=== PATIENT | female | born 1960 | race Caucasian/White ===

== ENCOUNTER 2023-01-09 09:52 | Emergency (ER) | payer MEDICARE, SELFPAY ==
[2023-01-09 10:06] VITALS: BP 145/113; PULSE 102; RESP 16; TEMP 36.8; O2SAT 99; BMI 27.3
--- NOTE | 2023-01-09 10:17 | CTR_ITS ---
PROCEDURE INFORMATION: Exam: CT Cervical Spine Without Contrast Exam date and time: 01/09/2023 10:57 AM Age: 62 years old Clinical indication: Injury or trauma; Fall; Blunt trauma TECHNIQUE: Imaging protocol: Computed tomography of the cervical spine without contrast. Radiation optimization: All CT scans at this facility use at least one of these dose optimization techniques: automated exposure control; mA and/or kV adjustment per patient size (includes targeted exams where dose is matched to clinical indication); or iterative reconstruction. REPORTING DATA: Count of CT and Cardiac NM exams in prior 12 months: This patient has received 2 known CTs and 0 known cardiac nuclear medicine studies in the 12 months prior to the current study. COMPARISON: No relevant prior studies available. RADIATION DOSE METRICS: Total DLP (mGy-cm): 158.9 FINDINGS: Bones/joints: Transverse ligament calcification. No fracture. No malalignment. No destructive bony process identified. 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 Moderate atlantodental osteoarthritis. Moderate right C3-C4 neural foraminal narrowing. Moderate left C4-C5, C5-C6 and C6-C7 primary facet osteoarthritis. Mild left C3-C4 and C7-T1 primary facet osteoarthritis. Moderate left C4-C5 neural foraminal narrowing. Moderate bilateral C5-C6 neural foraminal narrowing. Moderate left C6-C7 neural foraminal narrowing. Moderate right C3-C4 primary facet osteoarthritis. Mild right C4-C5, C5-C6, C6-C7 primary facet osteoarthritis. Posterior ligamentum flavum hypertrophy at multiple levels. Lungs: Minimal right apical paraseptal pulmonary emphysema. Thyroid: Small bilateral thyroid lobes, with right lobe small calcification (status post ablative therapy?). Vasculature: Bilateral carotid atherosclerotic calcifications. Soft tissues: Unremarkable. CT/CT cervical spin wo con* [id number] IMPRESSION: 1. Degenerative changes as above. 2. No acute cervical spinal bony injury identified.
--- NOTE | 2023-01-09 10:17 | CTR_ITS ---
PROCEDURE INFORMATION: Exam: CT Lumbar Spine Without Contrast Exam date and time: 01/09/2023 11:05 AM Age: 62 years old Clinical indication: Injury or trauma; Fall; Blunt trauma (contusions or hematomas); Prior surgery; Surgery date: 1-6 months; Surgery type: T9-s1 fusion TECHNIQUE: Imaging protocol: Computed tomography of the lumbar spine without contrast. Radiation optimization: All CT scans at this facility use at least one of these dose optimization techniques: automated exposure control; mA and/or kV adjustment per patient size (includes targeted exams where dose is matched to clinical indication); or iterative reconstruction. REPORTING DATA: Count of CT and Cardiac NM exams in prior 12 months: This patient has received 2 known CTs and 0 known cardiac nuclear medicine studies in the 12 months prior to the current study. COMPARISON: No relevant prior studies available. RADIATION DOSE METRICS: Total DLP (mGy-cm): 663.74 FINDINGS: Bones/joints: Postsurgical changes of posterior krystal and pedicle screw fixation extending from T10 through S1 with laminectomies at L4 and L5 and bone graft material in place. Age-indeterminate fracture involving the anterior superior aspect of the T10 vertebral body without significant height loss or bony retropulsion. Age-indeterminate nondisplaced fracture of the right transverse process of T10. There is lucency about the right L3 screw and involving the superior endplate of the L3 vertebral body. No evidence of high-grade spinal canal or neural foraminal stenosis. Soft tissues: Unremarkable. CT/CT lumbar spine wo con* [id number] IMPRESSION: 1. Age-indeterminate fracture involving the anterior superior aspect of the T10 vertebral body without significant height loss or bony retropulsion. 2. Age-indeterminate nondisplaced fracture of the right transverse process of T10. 3. There is lucency about the right L3 screw and involving the superior endplate of the L3 vertebral body. Correlation with any prior imaging would be of benefit. Loosening or infection are not entirely excluded.
--- NOTE | 2023-01-09 10:18 | CTR_ITS ---
PROCEDURE INFORMATION: Exam: CT Head Without Contrast Exam date and time: 01/09/2023 10:57 AM Age: 62 years old Clinical indication: Injury or trauma; Fall; Blunt trauma (contusions or hematomas); Additional info: Fall trauma TECHNIQUE: Imaging protocol: Computed tomography of the head without contrast. Radiation optimization: All CT scans at this facility use at least one of these dose optimization techniques: automated exposure control; mA and/or kV adjustment per patient size (includes targeted exams where dose is matched to clinical indication); or iterative reconstruction. REPORTING DATA: Count of CT and Cardiac NM exams in prior 12 months: This patient has received [address] and 0 known cardiac nuclear medicine studies in the 12 months prior to the current study. COMPARISON: No relevant prior studies available. RADIATION DOSE METRICS: Total DLP (mGy-cm): 1192.83 FINDINGS: Brain: Chronic lacunar infarction right basal forebrain. Mild hypoattenuating foci are noted in the anterior lateral ventricular periventricular white matter bilaterally. No intracranial hemorrhage. No mass or acute cortical infarction identified. Ventricles: Prominence of the ventricular system and subarachnoid spaces is consistent with the patient's age of 62 years. Paranasal sinuses: Mild posterior mucosal thickening and/or mucous right maxillary sinus.. Mastoid air cells: Visualized mastoid air cells are well aerated. Bones/joints: No acute abnormality. No acute fracture. Soft tissues: Unremarkable. Vasculature: Atherosclerotic calcifications are present involving the carotid artery siphons bilaterally and the right vertebral artery. CT/CT head wo con* [id number] IMPRESSION: 1. Chronic lacunar infarction right basal forebrain. 2. Age appropriate supratentorial and infratentorial atrophy. 3. Mild chronic white matter microvascular ischemic disease. 4. No acute intracranial injury identified.
--- NOTE | 2023-01-09 10:20 | ED_ITS ---
HPI - Back Pain/Injury General: Chief Complaint: Back Pain/Injury Stated Complaint: post spinal surgery pain/falls Time Seen by Provider: 01/09/23 09:55 Source: patient Mode of arrival: ambulatory History of Present Illness: 62-year-old female who presents to the emergency room complaining of multiple falls. She had a lumbar fusion in April of last year while in [place]. Evidently she moved here to be with family she does not use any kind of assistive device for walking neither cane or walker. She says she does not have enough upper strength to keep from falling. MD elicited complaint: back pain Pertinent past history: prior back pain and back surgery Onset (ago): week(s) (6) Severity: moderate Similar Symptoms Previously: Yes Exacerbating factors: none Relieving factors: none Associated symptoms: Deny abdominal pain, arthralgias, chills, change in bowel habits, difficulty walking, dysuria, fatigue, fecal incontinence, fever(s), hematuria, myalgias, nausea, numbness, syncope, tingling/numbness/burning, urinary frequency, urinary urgency, vomiting or weakness Review of Systems Const: Denies: fever(s), chills or fatigue ENMT: Denies: throat pain, ear or mastoid pain, nasal discharge or nasal congestion Card: Denies: chest pain or syncope Resp: Denies: dyspnea, productive cough or non-productive cough GI: Denies: abdominal pain, nausea, vomiting, fecal incontinence or change in bowel habits : Denies: dysuria, urinary frequency, urinary urgency or hematuria Musc: Reports: neck pain and back pain Skin/Breast: Denies: rash or pruritus Neuro: Denies: difficulty walking PFS ED PFSH: Medical History (Updated 01/09/23 @ 12:46 by oPla Montes De Oca DO) Chronic back pain Surgical History (Updated 01/09/23 @ 12:46 by Pola Montes De Oca DO) History of lumbar fusion Physical Exam Const: GENERAL APPEARANCE: cooperative and comfortable ORIENTATION/CONSCIOUSNESS: Yes awake, Yes oriented to person, Yes oriented to place and Yes oriented to time HENMT: COMMON NORMALS: normocephalic, atraumatic and hearing grossly normal bilaterally HEAD & SCALP: normocephalic and atraumatic Neck/C-Spine: OTHER: Scar from previous surgery Resp: COMMON NORMALS: normal respiratory effort, No retractions, No use of accessory muscles and clear to auscultation bilaterally AUSCULTATION: clear to auscultation bilaterally Cardio: COMMON NORMALS: regular rate, regular rhythm and No murmurs present (Cardio) RATE: regular rate RHYTHM: regular rhythm GI: COMMON NORMALS: Soft to palpation and No hepatosplenomegaly present AUSCULTATION: Yes normoactive bowel sounds PALPATION: Yes Soft to palpation, No Tenderness to palpation present (GI), No Guarding due to palpation present (GI) and Yes No hepatosplenomegaly present Extremity: COMMON NORMALS: normal to inspection, capillary refill normal, no clubbing, cyanosis or edema, no calf tenderness and no pedal edema OTHER: Dorsum plantarflexion 5 of 5 Neuro: SENSORIUM/ORIENTATION: Yes oriented to person, Yes oriented to place and Yes oriented to time Skin: COMMON NORMALS: no rashes or lesions noted GENERAL SKIN EXAM: no rashes or lesions noted Course Vital Signs: Vital signs: Vital Signs Temperature 98.3 F 01/09/23 10:06 Pulse Rate 91 01/09/23 12:55 Respiratory Rate 16 01/09/23 10:06 Blood Pressure 133/93 01/09/23 12:55 Pulse Oximetry 98 01/09/23 12:55 Oxygen Delivery Me thod 01/09/23 10:06 MDM - Back Pain/Injury Medical Decision Making Labs and imaging reviewed. CT shows T10 compression fracture and L3 spinous process fracture both of which are age-indeterminate. Additionally there is loosening of the screws at the L3 hardware from her laminectomy and fusion. We do not have comparison views to be certain. She does not have any signs of infection at this point her white count is normal. We will discharge patient home restarted Lyrica steroid pack given muscle relaxer given diclofenac as well. Follow-up with orthopedic spine surgery return for has further problems. Medical Records I reviewed the patient's medical records. Labs I reviewed the patient's lab results. 01/09/23 10:43 01/09/23 10:43 Radiology Impressions Cervical Spine CT 01/09/23 10:17 IMPRESSION: 1. Degenerative changes as above. 2. No acute cervical spinal bony injury identified. Lumbar Spine CT 01/09/23 10:17 IMPRESSION: 1. Age-indeterminate fracture involving the anterior superior aspect of the T10 vertebral body without significant height loss or bony retropulsion. 2. Age-indeterminate nondisplaced fracture of the right transverse process of T10. 3. There is lucency about the right L3 screw and involving the superior endplate of the L3 vertebral body. Correlation with any prior imaging would be of benefit. Loosening or infection are not entirely excluded. Head CT 01/09/23 10:18 IMPRESSION: 1. Chronic lacunar infarction right basal forebrain. 2. Age appropriate supratentorial and infratentorial atrophy. 3. Mild chronic white matter microvascular ischemic disease. 4. No acute intracranial injury identified. Laboratory Results WBC 6.6 10^3/uL (4.0-10.0) 01/09/23 10:43 RBC 5.00 10^6/uL (4.1-5.3) 01/09/23 10:43 Hgb 15.3 g/dL (11.5-15.3) 01/09/23 10:43 Hct 48.0 % (37.0-47.0) H 01/09/23 10:43 MCV 96.0 fl (81-99) 01/09/23 10:43 MCH 30.6 pg (28.0-34.0) 01/09/23 10:43 MCHC 31.9 g/dL (30.0-36.0) 01/09/23 10:43 RDW 12.4 % (12.1-15.1) 01/09/23 10:43 Plt Count 317 10^3/cmm (130-400) 01/09/23 10:43 MPV 7.9 fL (7.4-10.4) 01/09/23 10:43 Neut % (Auto) 60.4 % 01/09/23 10:43 Lymph % (Auto) 24.8 % 01/09/23 10:43 Lasalle % (Auto) 7.4 % 01/09/23 10:43 Eos % (Auto) 6.1 % 01/09/23 10:43 Baso % (Auto) 1.1 % 01/09/23 10:43 Neut # (Auto) 3.99 10^3/uL (1.8-7.7) 01/09/23 10:43 Lymph # (Auto) 1.6 10^3/uL (0.8-4.8) 01/09/23 10:43 Lasalle # (Auto) 0.5 10^3/uL (0.2-0.9) 01/09/23 10:43 Eos # (Auto) 0.4 10^3/uL (0.0-0.8) 01/09/23 10:43 Baso # (Auto) 0.1 10^3/uL (0.0-0.1) 01/09/23 10:43 Nucleated RBC % (auto) 0 % 01/09/23 10:43 Nucleated RBCs # 0.0 /100WBC 01/09/23 10:43 Sodium 136 mmol/L (136-145) 01/09/23 10:43 Potassium 4.3 mmol/L (3.5-5.1) 01/09/23 10:43 Chloride 98 mmol/L (98-107) 01/09/23 10:43 Carbon Dioxide 29 mmol/L (22-29) 01/09/23 10:43 Anion Gap 13.3 (5-19) 01/09/23 10:43 BUN 11 mg/dL (8-23) 01/09/23 10:43 Creatinine 0.6 mg/dL (0.5-0.9) 01/09/23 10:43 GFR Calculation 101.6 mL/min (90-130) 01/09/23 10:43 Glucose 81 mg/dL (65-115) 01/09/23 10:43 Calculated Osmolality 280 mOsm/kg (285-295) L 01/09/23 10:43 Calcium 9.5 mg/dL (8.5-10.5) 01/09/23 10:43 Total Bilirubin 0.3 mg/dL (0.15-1.2) 01/09/23 10:43 AST 22 U/L (0-32) 01/09/23 10:43 ALT 10 U/L (0-33) 01/09/23 10:43 Alkaline Phosphatase 105 U/L (35-105) 01/09/23 10:43 Total Protein 8.3 g/dL (6.6-8.7) 01/09/23 10:43 Albumin 4.8 g/dL (3.5-5.2) 01/09/23 10:43 Globulin 3.5 g/dL (1.3-4.6) 01/09/23 10:43 Discharge Plan Discharge Patient Disposition: Home Clinical Impression: Chronic back pain, History of lumbar fusion, Fracture of transverse process of lumbar vertebra, Compression fracture of thoracic vertebra, Loosening of orthopedic screw Condition: Stable Prescriptions: New Lyrica 200 mg capsule 200 mg PO BID Qty: 30 0RF tizanidine 4 mg tablet 4 mg PO Q6H PRN (Reason: muscle spasticity) Qty: 20 0RF Rx Instructions: do not exceed 3 doses per 24 hrs No Action cyclobenzaprine 10 mg Tablet 10 mg PO TID PRN (Reason: Muscle Spasm) levothyroxine 75 mcg Tablet 75 mcg PO DAILY pantoprazole 40 mg Tablet,Delayed Release (Dr/Ec) 40 mg PO DAILY Celebrex 100 mg Capsule 100 mg PO BID PRN (Reason: Pain) Cymbalta 20 mg Capsule,Delayed Release(Dr/Ec) 20 mg PO BID Lyrica 100 mg Capsule 200 mg PO BID oxycodone 10 mg Tablet 10 mg PO QID PRN (Reason: Pain) Keppra XR 750 mg Tablet Extended Release 24 Hr 750 mg PO BEDTIME Discharge Orders: Discharge ED (Routine); Ordered 01/09/23 Ordered By: Pola Montes De Oca Discharge Diet: Usual diet Discharge Activity: Increase activity as tolerated Patient Instructions: Opioid Safety, Pain Management Activity Restrictions/Additional Instructions: You were seen today for chronic back pain. CT showed a lumbar transverse process fracture and a thoracic compression fracture however we cannot see how long ago these may have happened. There is also loosening of the screw in the third lumbar vertebrae. This is difficult to assess because we do not have available images to compare to. You are given medications for pain to use by mouth at home. Case management make arrangements for you to follow-up with o rthopedic spine surgery so they can address these issues. Coding Level of Care Code ED Instrument Setter for Aolnzo Mendiola
[2023-01-09] MEDS: ketorolac 30 mg/mL INJ IVP (10:39)
[2023-01-09] MEDS: dexamethasone 10 mg/mL INJ IVP (10:41)
[2023-01-09] MEDS: orphenadrine 30 mg/mL Inj 2 mL 60 MG IVP (10:43)
[2023-01-09 10:56] LABS: Basophils # 0.1 10^3/uL (0.0-0.1); Basophils % 1.1 %; Eosinophils # 0.4 10^3/uL (0.0-0.8); Eosinophils % 6.1 %; Hemoglobin 15.3 g/dL (11.5-15.3); Lymphocytes # 1.6 10^3/uL (0.8-4.8); Lymphocytes % 24.8 %; Mean Corpuscular HGB Conc 31.9 g/dL (30.0-36.0); Mean Corpuscular Hemoglobin 30.6 pg (28.0-34.0); Mean Platelet Volume 7.9 fL (7.4-10.4); Monocytes # 0.5 10^3/uL (0.2-0.9); Monocytes % 7.4 %; Neutrophils # 3.99 10^3/uL (1.8-7.7); Neutrophils % 60.4 %; Nucleated Red Blood Cells % 0 %; Platelet Count 317 10^3/cmm (130-400); Red Cell Distribution Width 12.4 % (12.1-15.1); White Blood Count 6.6 10^3/uL (4.0-10.0)
[2023-01-09 11:14] LABS: Alanine Aminotransferase 10 U/L (0-33); Albumin Level 4.8 g/dL (3.5-5.2); Alkaline Phosphatase 105 U/L (35-105); Anion Gap 13.3 (5-19); Aspartate Amino Transferase 22 U/L (0-32); Blood Urea Nitrogen 11 mg/dL (8-23); Calcium 9.5 mg/dL (8.5-10.5); Carbon Dioxide 29 mmol/L (22-29); Chloride 98 mmol/L (98-107); Globulin 3.5 g/dL (1.3-4.6); Glomerular Filtration Rate 101.6 mL/min (90-130); Glucose 81 mg/dL (65-115); Osmolality Calculated 280 mOsm/kg (285-295); Potassium 4.3 mmol/L (3.5-5.1); Sodium 136 mmol/L (136-145); Total Bilirubin 0.3 mg/dL (0.15-1.2); Total Protein 8.3 g/dL (6.6-8.7)
[2023-01-09 12:55] VITALS: BP 133/93; PULSE 91; O2SAT 98
--- NOTE | 2023-01-09 15:21 | DCPLANNER ---
Addendum entered by Nola Sherman 01/13/23 09:21: Patient had a follow up appointment scheduled with ortho - patient did attend appointment Addendum entered by Nola Sherman 01/10/23 08:32: Patient has a follow up appointment scheduled for , January 12, 2023 at 8:30 with Erwin at ortho. Clinic will call patient with appointment information. Original Note: environmental services manager had message to schedule a follow up appointment for patient with ortho. environmental services manager sent patients information to the front office staff at ortho. Patients information will be printed and reviewed. Clinic will call patient with appointment information.
--- NOTE | 2023-01-12 13:35 | DCPLANNER ---
Addendum entered by Nola Sherman 01/20/23 09:32: Patient did attend appointment with Dr. Sotelo at [facility] Original Note: manager study called patient due to no primary care physician - patient stated that she would like help in getting established with a provider. manager study called [facility], spoke with Tara gave clinic patients information. A follow up appointment was scheduled for Wednesday, January 18, 2023 at 8:[address] Sotelo. manager study gave patient the appointment information.
== END 2023-01-09 12:56 | disposition home or self-care (01) ==
PROVIDERS: Emergency Provider Family Medicine
DX: G89.29 Other chronic pain (principal); S32.009A Unspecified fracture of unspecified lumbar vertebra, initial encounter for closed fracture; S22.070A Wedge compression fracture of T9-T10 vertebra, initial encounter for closed fracture; T84.89XA Other specified complication of internal orthopedic prosthetic devices, implants and grafts, initial encounter; Y79.8 Miscellaneous orthopedic devices associated with adverse incidents, not elsewhere classified; W19.XXXA Unspecified fall, initial encounter
CPT/HCPCS: 70450; 72125; 72131; 80053; 85025; 96374; 96375; 99285; J1100; J1885; J2360

== ENCOUNTER → 2023-01-12 08:33 | Outpatient (BNVA) | payer MEDICARE, SELFPAY | PROVIDERS: Referring Provider Family Medicine; Visit Provider Physician Assistant | DX: S32.009A Unspecified fracture of unspecified lumbar vertebra, initial encounter for closed fracture (principal); S22.000A Wedge compression fracture of unspecified thoracic vertebra, initial encounter for closed fracture; M54.9 Dorsalgia, unspecified; Z98.1 Arthrodesis status; X58.XXXA Exposure to other specified factors, initial encounter | CPT/HCPCS: 72072; 72100; 99203 ==

== ENCOUNTER 2023-01-12 14:42 | Outpatient (CLI) | payer MEDICARE, SELFPAY | END 2023-01-12 14:43 | disposition home or self-care (01) | LOC: SPT 14:42 | PROVIDERS: Visit Provider Physician Assistant | DX: Z46.89 Encounter for fitting and adjustment of other specified devices (principal); S32.009D Unspecified fracture of unspecified lumbar vertebra, subsequent encounter for fracture with routine healing; S22.000D Wedge compression fracture of unspecified thoracic vertebra, subsequent encounter for fracture with routine healing; G89.29 Other chronic pain; M54.9 Dorsalgia, unspecified; X58.XXXD Exposure to other specified factors, subsequent encounter | CPT/HCPCS: 97760; L0456 ==

== ENCOUNTER 2023-02-02 13:13 | Outpatient (CLI) | payer MEDICARE, MEDICAID, SELFPAY ==
--- NOTE | 2023-02-02 13:00 | MR_ITS ---
WS: [id number] MRI THORACIC SPINE noncontrast. HISTORY: Extreme back pain and instability. COMPARISON: Thoracic spine radiograph 01/12/2023 TECHNIQUE: Multiplanar sequences are performed in sagittal and axial planes. Marked increase in thoracic kyphosis. Prior vertebroplasties at T5 and T6. Posterior fusion hardware begins at T10 into the upper lumbar spine. Very slight anterior wedging of T7. No marrow edema. T1-2: Normal. T2-3: Normal. T3-4: Normal. T4-5: Mild disc bulging. T5-6: Normal. T6-7: Bilateral facet arthritis. Very slight foraminal narrowing. T7-8: Normal. T8-9: Facet joint arthritis and mild foraminal narrowing. T9-10: Seen best on the sagittal imaging is diffuse disc bulging and likely associated disc protrusi ons encroaching upon the thoracic cord. There is mild to moderate central and foraminal stenosis. The re is contact on the LEFT lateral thecal sac by disc disease which is probably a protrusion. Similar findings on the RIGHT. Moderate foraminal stenosis also suspected. T10-11: Mild bilateral foraminal narrowing. T11-12: Left-sided facet joint arthritis. No high-grade stenosis. MR/MR thoracic spin wo con* [id number] IMPRESSION: 1. Diffuse annular disc bulging with bilateral proximal foraminal disc protrus ions suspected at T9-T10 with significant narrowing and encroachment upon the t hecal sac and foramina. Moderate central and foraminal stenosis. 2. Posterior thoracolumbar fusion begins at T10 through the upper lumbar spine . 3. Prior kyphoplasty is at T5 and T6. 4. Very mild anterior wedging of T7.
== END 2023-02-02 13:14 | disposition home or self-care (01) ==
PROVIDERS: PCP Family Medicine Adult Medicine; Visit Provider Physician Assistant
DX: M48.54XA Collapsed vertebra, not elsewhere classified, thoracic region, initial encounter for fracture (principal); X58.XXXA Exposure to other specified factors, initial encounter
CPT/HCPCS: 72146

== ENCOUNTER → 2023-02-14 09:21 | Outpatient (BNVA) | payer MEDICARE, MEDICAID, SELFPAY | PROVIDERS: PCP Family Medicine Adult Medicine; Visit Provider Physician Assistant | DX: M54.2 Cervicalgia (principal) | CPT/HCPCS: 36415; 72050; 80053; 85025; 99213 ==

== ENCOUNTER → 2023-03-01 16:05 | Outpatient (BNVA) | payer OTHER, MEDICAID, SELFPAY | PROVIDERS: PCP Family Medicine Adult Medicine; Referring Provider Physician Assistant; Visit Provider Internal Medicine | DX: M81.0 Age-related osteoporosis without current pathological fracture (principal) | CPT/HCPCS: 80053; 82306; 82310; 83970; 84439; 84443 ==

== ENCOUNTER 2023-03-06 13:08 | Outpatient (CLI) | payer OTHER, MEDICAID, SELFPAY ==
--- NOTE | 2023-03-06 13:30 | XR_ITS ---
WS: [id number] DEXA (DUAL ENERGY X-RAY ABSORPTIOMETRY) Bone mineral density was performed using a [employer] machine. HISTORY: osteoporosis COMPARISON: None available. Lumbar spine BMD (L1-L4): 1.348 g/cm2 T score: 1.4 Z score: 2.7 Total hip BMD: Left: 0.781 g/cm2. T score: -1.8 Z score: -0.8 Right: 0.817 g/cm2. T score: -1.5 Z score: -0.6 10 year probability of a major osteoporotic fracture is 7.8%. XR/XR DEXA axial skeleton* [id number] IMPRESSION: OSTEOPENIA based upon the WHO classification for females.
== END 2023-03-06 13:09 | disposition home or self-care (01) ==
LOC: RAD 13:11
PROVIDERS: PCP Family Medicine Adult Medicine; Visit Provider Internal Medicine
DX: M81.0 Age-related osteoporosis without current pathological fracture (principal)
CPT/HCPCS: 77080

== ENCOUNTER → 2023-03-23 10:31 | Outpatient (BNVA) | payer MEDICARE, MEDICAID, SELFPAY | PROVIDERS: PCP Family Medicine Adult Medicine; Visit Provider Physician Assistant | DX: M54.6 Pain in thoracic spine (principal) | CPT/HCPCS: 72070; 99213 ==

== ENCOUNTER 2023-03-31 11:40 | Outpatient (CLI) | payer MEDICARE, MEDICAID, SELFPAY ==
--- NOTE | 2023-03-31 12:00 | MR_ITS ---
WS: [id number] MRI THORACIC SPINE noncontrast HISTORY: Chronic mid back pain. Recent falls. COMPARISON: 02/02/2023. Radiograph 03/23/2023 TECHNIQUE: Multiplanar sequences are performed in sagittal and axial planes. Marked increase in thoracic kyphosis. Status post thoracolumbar fusion. Posterior fusion hardware beg ins at T10 and extends into the upper lumbar spine. Prior vertebroplasties at T5 and T6. No acute tho racic spine fracture identified. No signal abnormality within the cord. Mild Schmorl's node defect in the anterior wedging of T7 is stable. T8 hemangioma. T9-10: RIGHT paracentral disc protrusion extends above the joint line and does displace the thecal s ac. There is very slight contact with extension into the RIGHT paracentral recess. The extruded porti on of the disc is new since the prior study. There was a LEFT paracentral disc protrusion noted on th e prior MRI. There is still increased soft tissue in the LEFT foramen suggesting residual LEFT forami nal disc protrusion. There is contact and new deformity of the cord secondary to the disc protrusions and facet arthritis. Deformity of the cord is predominantly due to the RIGHT paracentral extruded di sc. T10-11: No stenosis. T11-12: Hardware artifact limiting evaluation. MR/MR thoracic spin wo con* [id number] IMPRESSION: 1. New lateral RIGHT paracentral extruded disc at T9-10 contacting the RIGHT l ateral thecal sac and cord. There is an additional smaller LEFT foraminal disc protrusion that was described on 02/02/2023 in the LEFT T9-10 foramen. There has been a progression of the central stenosis since that prior study. 2. Extensive posterior thoracolumbar hardware beginning at T10 through the upp er lumbar spine. 3. Prior vertebroplasties at T5 and T6.
== END 2023-03-31 11:41 | disposition home or self-care (01) ==
LOC: RAD 11:45
PROVIDERS: PCP Family Medicine Adult Medicine; Visit Provider Physician Assistant
DX: M51.24 Other intervertebral disc displacement, thoracic region (principal); M48.04 Spinal stenosis, thoracic region
CPT/HCPCS: 72146

== ENCOUNTER 2023-04-10 13:26 | Inpatient (IN) | payer MEDICARE, MEDICAID, SELFPAY ==
[2023-04-03 08:17] VITALS: BMI 27.1
--- NOTE | 2023-04-03 14:23 | ANES.PREANE2 ---
Pre-Anesthetic Assessment Height/Weight: Height 1.57 m Weight 67.132 kg Operation Date: 04/10/23 09:10 Proposed Procedures p Hardware Removal Thoracic(Not Applicable) - Jignesh Mcnamara DO s T3- T10 revision fusion with lumbo pelvis and SI joint fusion: [id number],89626,M54.2,M54.6,G89.29(Not Applicable) - Jignesh Mcnamara DO Familial anesthetic complications: none Was Beta Grayson taken within 24 hours: N/A Was Clonidine taken within 24 hours: N/A Social No alcohol and No tobacco (h/o smoking) Exam alert, oriented x 3 and regular rate & rhythm Airway Submandibular: within normal limits Cervical ROM: within normal limits Mallampati: Class II Dentition: chipped Metabolic Thyroid Disease Musc/skel Lower Back Pain and Osteoarthritis/DJD Neuropsych Anxiety, Depression and Seizure Chronic pain Anesthetic Plan ASA status: 3 Anesthesia: General Other: Discussed a.line and need for transfusion. Medications/Allergies Home Medications Medication Instructions Recorded Confirmed Last Taken Type TLSO Brace #1 ea 01/12/23 03/23/23 Unknown Rx Walker #1 ea 01/12/23 03/23/23 Unknown Rx duloxetine 30 mg capsule,delayed 30 mg PO BID #60 caps 01/18/23 04/03/23 04/03/23 Rx release levetiracetam 750 mg 750 mg PO BEDTIME seizures #90 tabs 01/18/23 04/03/23 04/03/23 Rx tablet,extended release 24 hr (Keppra XR) levothyroxine 75 mcg tablet 75 mcg PO DAILY low thyroid #90 01/18/23 04/03/23 04/03/23 Rx tabs pantoprazole 40 mg tablet,delayed 40 mg PO DAILY acid reflux #90 tabs 01/18/23 04/03/23 04/03/23 Rx release pregabalin 100 mg capsule 100 mg PO BID chronic pain #60 caps 01/20/23 04/03/23 04/03/23 Rx promethazine 25 mg tablet 25 mg PO Q6H PRN nausea and 02/16/23 04/03/23 04/03/23 Rx vomiting #30 tabs Bone Growth Stimulator [id number] #1 ea 02/27/23 03/23/23 Unknown Rx Intraoperative neuromonitoring #1 ea 02/27/23 03/23/23 Unknown Rx tizanidine 4 mg capsule 4 mg PO TID PRN pain] 03/09/23 04/03/23 04/03/23 History oxycodone 5 mg capsule 5 mg PO Q6H PRN Pain 04/03/23 04/03/23 04/03/23 History Allergies Allergy/AdvReac Type Severity Reaction Status Date / Time Sulfa (Sulfonamide Allergy ALGY-Anaphy Verified 04/03/23 08:13 Antibiotics) laxis [facility] Anesthesia Medical History (Updated 03/28/23 @ 06:14 by [place] Sotelo MD) Funes esophagus Chronic back pain posterior krystal and pedicle screw fixation extending from T10 through S1 with laminectomies at L4 and L5 Chronic left shoulder pain Chronic nausea Depression GERD (gastroesophageal reflux disease) History of alcoholism Sober since 2009 Hx of hepatitis C treated at time of diagnosis Hypothyroidism Opioid dependence [facility], Oxycodone out since ~ 12/21/2022 Osteoporosis Osteoporotic compression fracture of spine Seizures had one seizure Oct 2021, none since Surgical History History of lumbar fusion S/P spinal fusion S/P vertebroplasty Family History Denies family history of Diabetes Anesthesia complication Hypertension Social History Smoking and tobacco status: former smoker Quit status (tobacco): has quit using tobacco Former quit date comment: quit in 2019 Data Anesthesia Cardiac Studies: No Data to Display
[2023-04-10] VITALS (24 sets, daily range): BP systolic 89–118; BP diastolic 48–100; PULSE 80–111; RESP 15–20; TEMP 36.4–37.4; O2SAT 91–100
--- NOTE | 2023-04-10 | XR_ITS ---
WS: [id number] EXAMINATION: XR lumbar spine 1V [id number] REASON FOR EXAM: T3-T10 revision COMPARISON: 01/12/2023. ORDER DATE: 04/10/2023 12:00 AM FINDINGS/IMPRESSION: Intraoperatively, there is a partial view of the lumbar spine but mostly the exa m is centered at the right SI joint with a right marker noted laterally. There is one other view intr aoperatively with midline centering demonstrating tissue spreaders and screws being positioned throug h each SI joint with the spinal instrumentation from prior fusion visualized more cephalad. The films are not obtained for diagnostic purposes.
[2023-04-10] MEDS: sodium chloride 0.9% 1,000 ML 30 ML IV (09:20)
[2023-04-10] MEDS: HYDROmorphone 1 mg/mL INJ 1 mL 0.5 MG IVP (09:41)
--- NOTE | 2023-04-10 09:43 | P.ANESUD_ITS ---
Pre-Anesthetic Update Pre-Anesthetic Assessment: Date of Surgery/Procedure: 04/10/23 Preop Tammy gnosis: Failed spinal fusion thoracic kyphosis, chronic back pain Proposed Procedure: Operation Date: 04/10/23 10:25 Proposed Procedures p Hardware Removal Thoracic(Not Applicable) - Jignesh Mcnamara, DO s T3- T10 revision fusion with lumbo pelvis and SI joint fusion: [id number],M54.2,M54.6,G89.29(Not Applicable) - Jignesh Mcnamara, DO Any changes to Pre-Anesthetic Assessment?: No Last Intake: Intake Last Liquid Date 04/09/23 Last Liquid Time 20:00 Last Solid Date 04/09/23 Last Solid Time 18:00 Vitals: Temperature 98.5 F 04/10/23 09:06 Temperature Source Temporal Artery S can 04/10/23 09:06 Pulse Rate 80 04/10/23 09:06 Respiratory Rate 18 04/10/23 09:06 Blood Pressure 118/100 04/10/23 09:06 Blood Pressure Elva n 106 04/10/23 09:06 Pulse Oximetry 96 04/10/23 09:06 Oxygen Delivery Me thod Room Air 04/10/23 09:06 Exam: Pre-Anes Outpt Exam: alert, oriented x 3, clear to auscultation bilaterally and regular rate & rhythm Cardiac Studies: No Data to Display
[2023-04-10 09:49] LABS: Basophils % 0.7 %; Eosinophils # 0.5 10^3/uL (0.0-0.8); Eosinophils % 8.7 %; Hematocrit 39.8 % (37.0-47.0); Hemoglobin 12.9 g/dL (11.5-15.3); Lymphocytes # 1.8 10^3/uL (0.8-4.8); Lymphocytes % 32.2 %; Mean Corpuscular HGB Conc 32.4 g/dL (30.0-36.0); Mean Corpuscular Hemoglobin 31.8 pg (28.0-34.0); Mean Platelet Volume 8.7 fL (7.4-10.4); Monocytes # 0.5 10^3/uL (0.2-0.9); Monocytes % 8.7 %; Neutrophils # 2.74 10^3/uL (1.8-7.7); Neutrophils % 49.5 %; Nucleated Red Blood Cells % 0 %; Platelet Count 238 10^3/cmm (130-400); Red Blood Count 4.06 10^6/uL (4.1-5.3); White Blood Count 5.5 10^3/uL (4.0-10.0)
[2023-04-10 10:23] LABS: Add Urine Culture? No; Add Urine Microscopic? YES; Bacteria Urine TRACE /hpf; Bilirubin Urine Neg (Negative); Blood Urine Neg (Negative); Glucose Urine UA Norm (Normal); Ketones Urine Negative (Negative); Leukocyte Esterase Urine 1+ (Negative); Nitrate Urine Negative (Negative); Protein Urine Neg (Negative); RBC Urine 0-4 /hpf (0-2); Renal Epithelial Cells Urine 3 /hpf; Squamous Epithelial Cell Urine 0-4 /hpf (0-5); Urine Appearance Clear (CLEAR); Urine Color Yellow (Yellow); Urobilinogen Urine Norm (Negative); pH Urine 7 (5-7)
--- NOTE | 2023-04-10 10:25 | W.PM.OPSUD ---
Surgery/Procedure H&P Update DATE OF PROCEDURE: April 10, 2023 DATE H&P PERFORMED: 03/23/23 H&P UPDATE INFORMATION: I have reviewed H&P completed within last 30 days, I have examined patient prior to procedure and No changes to prior documentation PREOP DIAGNOSIS: Failed spinal fusion thoracic kyphosis, chronic back pain PLANNED PROCEDURE: Operation Date: 04/10/23 10:25 Proposed Procedures p Hardware Removal Thoracic(Not Applicable) - Jignesh Mcnamara DO s T3- T10 revision fusion with lumbo pelvis and SI joint fusion: [id number],75116,M54.2,M54.6,G89.29(Not Applicable) - Jignesh Mcnamara DO
[2023-04-10] MEDS: ceFAZolin 2,000 MG in sodium chloride 0.9% (plus) 50 ML 100 MG IV ×2 (10:28→17:34)
[2023-04-10] MEDS: vancomycin 1,000 MG SDV 1000 MG (11:15)
[2023-04-10] MEDS: lidocaine-epi 2% 20 mL INJ INJECTION (11:15)
[2023-04-10] MEDS: heparin, porcine 1,000 unit/mL INJ 10 mL 10000 UNIT IRRIGATION (11:15)
--- NOTE | 2023-04-10 14:20 | P.OP_ITS ---
Operative Report Date of procedure: April 10, 2023 Pre-op diagnosis: Preop Diagnosis Failed spinal fusion thoracic kyphosis, chronic back pain Post-op diagnosis: same Procedure done: 1. T3 -T10 posterior spine fusion 2. T3 -T10 instrumentation 3. lumbopelvic fixation 4 L4 to pelvis fusion 5. Right open SI joint fusion 6. left open SI joint fusion 7. Use of computer navigation stereotactic for spone 8. use of allograft Surgeon: Jignesh Mcnamara Medical Collector: Erwin Villegas Medical Collector: The surgical instrument maker, Erwin Villegas, ERIKA was needed for his expertise under the microscope. He was important and necessary throughout the procedure to complete in a safe and timely manner. He assisted with patient positioning prepping and draping tissue retraction suctioning of the operative field protection of the dural sac and tissue closure Estimated blood loss (mL): 600 Procedure: 1. T3 -T10 posterior spine fusion 2. T3 -T10 instrumentation 3. lumbopelvic fixation 4 L4 to pelvis fusion 5. Right open SI joint fusion 6. left open SI joint fusion 7. Use of computer navigation stereotactic for spone 8. use of allograft 9. Bone marrow aspirate right iliac crest Patient was brought to the operative suite after undergoing anesthesia was placed in the prone position. All areas impingement well-padded patient's prepped draped normal sterile fashion. Skin incision made over the T3-T10 level. Subperiosteal dissection was made out to the transverse processes of T3- T10. T10-T11 screws were exposed from previous construct. A wilver connector was placed in between the T10 and T11 screws. Next a spinous process clamp was placed on the T10. And then this will be used to low to the computer navigation for used for placing computer navigated screws. The C-arm was brought in spun around the patient the information from the C-arm was loaded into the fiducial that was attached to the spinous Process clamp this information was then used to place the T3-T9 pedicle screws. The screws were placed by using the gearshift probe which was linked to the computer navigation as well as using the pedicle feeler followed by placement of screw. This was done bilaterally T3-T4-T5 and T6 were skipped because she has a kyphoplasty done of these 2 levels and the screws were placed at T7-T8 and T9. Once all the screws were completed then rods were then placed in the tulips of the screws and locked with the screw. They were torqued into position and locked all the way down to the T11 T10 clamp that was placed the wilver wilver connector. Next the bone was all decorticated of the laminas and the ostial amp bone graft was then packed in the gutters. Next tension was brought to the lumbar level. Skin incision was made from L4 to the pelvis. The dissection was made down L4-L5 and S1 screws were identified. Sacrum was identified SI joint was identified. Retractors were placed. Attention was brought to placing the clamp between the L4 and L5 screws. Once the wilver wilver clamp was attached this was done bilaterally. Next the iliac screw was placed using computer navigation. The clamp fiducial was attached to 2 pins in the right iliac crest. Against the C-arm was brought around the patient and information from the C-arm was used to place the iliac screws using computer navigation. Bone marrow aspirate was also taken from the right iliac crest using the [employer] cell bone marrow aspiration kit. This was used to mixed with the bone graft. The iliac screws were then placed using computer navigation this was done by using the gearshift probe going through the ala across the SI joint and into the iliac wing. This was done bilaterally. Size 9.5 x 70 mm screws were then passed using. Navigation from the sacral ala across the SI joint and into the iliac wing. The this was done on the right and left side. Extension was brought to placing the sacroiliac screw for fusion the gearshift probe again linked to [employer] was passed goes across the SI joint then a wire was placed then that wire was drilled. The ostium bone graft was packed into this hole and then the sacroiliac screw was then passed to fuse the iliac sacroiliac joint. This was done on both the right and the left side. Wilver was connected from the L4-5 wilver wilver clamp and to the iliac screw. Once that was passed a screw caps were placed on top and torqued into position. This was done bilaterally. Connecting the lumbar fusion to the iliac completing the lumbopelvic fixation. The lateral gutters were decorticated SI joint was decorticated and bone graft was packed in the lateral gutters to complete the lumbopelvic fusion. This was done bilaterally. Wounds were then closed in layered fashion with 0 Vicryl 2-0 Vicryl and Monocryl suture. Sterile dressings were applied and patient was transferred to the PACU in stable condition.
[2023-04-10] MEDS: fentaNYL 50 mcg/mL INJ 2mL IVP (15:25)
--- NOTE | 2023-04-10 16:26 | ANE.PACU2 ---
Inpatient post-anesthesia follow up: Airway intact: Yes Vital signs: Temperature 99.3 F Pulse Rate 104 Respiratory Rate 16 Blood Pressure 90/56 Pulse Oximetry 95 Oxygen Delivery Me thod Nasal Cannula Oxygen Flow Rate 3 Fraction of Inspir ed Oxygen Hydration adequate: Yes Nausea and vomiting: No Pain level: 5 Mental status: Baseline
[2023-04-10] MEDS: duloxetine 30 mg Capsule PO (17:34)
[2023-04-10] MEDS: lactated ringers 1,000 ML 90 ML IV (17:34)
[2023-04-10] MEDS: docusate sodium 100 mg Capsule PO (17:34)
[2023-04-10] MEDS: morphine 4 mg/mL SDV 1 mL 2 MG IVP (17:35)
[2023-04-10 18:27] LABS: Basophils % 0.2 %; Eosinophils % 0.1 %; Hematocrit 30.3 % (37.0-47.0); Hemoglobin 9.2 g/dL (11.5-15.3); Lymphocytes # 0.5 10^3/uL (0.8-4.8); Lymphocytes % 4.2 %; Mean Corpuscular HGB Conc 30.4 g/dL (30.0-36.0); Mean Corpuscular Hemoglobin 31.3 pg (28.0-34.0); Mean Corpuscular Volume 103.1 fl (81-99); Mean Platelet Volume 8.7 fL (7.4-10.4); Monocytes # 0.4 10^3/uL (0.2-0.9); Monocytes % 3.6 %; Neutrophils # 10.94 10^3/uL (1.8-7.7); Neutrophils % 91.2 %; Nucleated Red Blood Cells % 0 %; Platelet Count 185 10^3/cmm (130-400); Red Blood Count 2.94 10^6/uL (4.1-5.3); Red Cell Distribution Width 13.1 % (12.1-15.1)
[2023-04-10] MEDS: ketorolac 30 mg/mL INJ IVP (19:12)
[2023-04-10] MEDS: levETIRAcetam 500 mg Tablet PO (20:38)
[2023-04-10] MEDS: oxyCODONE-APAP 10-325 mg Tablet PO (20:38)
[2023-04-10] MEDS: pregabalin 100 mg Capsule PO (20:38)
[2023-04-11] VITALS (14 sets, daily range): BP systolic 93–121; BP diastolic 56–81; PULSE 68–97; RESP 16–19; TEMP 36.4–36.8; O2SAT 88–99
[2023-04-11] MEDS: oxyCODONE-APAP 10-325 mg Tablet PO ×5 (01:30→22:49)
[2023-04-11] MEDS: ceFAZolin 2,000 MG in sodium chloride 0.9% (plus) 50 ML 100 MG IV ×2 (01:57→08:17)
[2023-04-11] MEDS: lactated ringers 1,000 ML 90 ML IV (04:29)
--- NOTE | 2023-04-11 06:59 | P.PN_ITS ---
Subjective Subjective: POD 1 Patient resting comfortably. Reports back pain. Denies shortness of breath, chest pain, headaches. Vitals/I&O/Wt Last Vital Signs Temp 97.8 F 04/11/23 04:36 Pulse 94 04/11/23 04:36 Resp 16 04/11/23 04:36 BP 93/56 04/11/23 04:36 Pulse Ox 90 04/11/23 04:36 O2 Del Method Nasal Cannula 04/10/23 18:40 O2 Flow Rate 2 04/10/23 20:00 04/10/23 04/10/23 04/11/23 14:59 22:59 06:59 Intake Total 1848.5 / 1848.5 1032.5 / 2881.0 Output Total 1725 / 1725 860 / 2585 Balance 123.5 / 123.5 172.5 / 296.0 Physical Exam Narrative: Patient presents alert and oriented x3 with a good general appearance normal mood and affect. Normal coordination normal stability. Mild tenderness around the incisional site with the incision appear to be clean and dry with Hemovac drains intact. No signs of erythema or drainage. No signs of infection. Patient denies any fevers or chills. 4/5 motor strength both lower extremities with negative straight leg raise bilaterally. Calves are supple no medial thigh tenderness. Pulses are 2+ at the dorsalis pedis and posterior tibial region. Good capillary refill throughout normal sensation light touch both lower extremities. Urinary Catheter Management: Vargas: Cath Placed During This Visit: yes Reason for Continuing Indwelling Catheter: Perioperative Use in Selected Surgeries Urinary Catheter Date of Insertion: 04/10/23 Urinary Catheter Time of Insertion: 10:55 Data 04/10/23 18:13 A&P Assessment and plan (1) S/P spinal fusion: Encourage incentive spirometry for pulmonary toilet. Physical therapy to evaluate and mobilize. Continue abdominal binder when patient is up in a sitting or standing position. Discontinue Vargas catheter after physical therapy evaluation. Patient is high risk of bleeding so continue with SCDs for DVT prophylaxis. health services information specialist consult for placement. Attestations Medical Necessity Statement*: Await pain control and placement. Coding Level of Care Code Acute Code for Chg Fwd Diagnoses S/P spinal fusion Z98.1
[2023-04-11] MEDS: pregabalin 100 mg Capsule PO ×2 (08:16→20:18)
[2023-04-11] MEDS: pantoprazole DR 40 mg Tablet PO (08:16)
[2023-04-11] MEDS: levETIRAcetam 500 mg Tablet PO ×2 (08:16→18:09)
[2023-04-11] MEDS: levothyroxine 75 mcg Tablet PO (08:16)
[2023-04-11] MEDS: duloxetine 30 mg Capsule PO ×2 (08:16→18:09)
[2023-04-11] MEDS: docusate sodium 100 mg Capsule PO ×2 (08:16→18:09)
--- NOTE | 2023-04-11 09:55 | PC.CHAP ---
Pastoral Care Encounter/Spiritual Assessment Type of Contact [] Declined cytogenetic technician visit [] Patient/Family/Request visit [] Outpatient visit [] Follow-up visit [] Physician referral [] Code/Alert [] Routine visit [] Staff referral [] Actively dying [] Patient sleeping [] Family support [] [] Out of room [] Palliative care [] [x] Receiving care in room [] Pre-surgical visit [] Trauma [] Long length of stay [] ICU visit [] Other: Relational/Emotional Strength [] Patient feels connected with others/family/visitors/staff [] Distress [] Loneliness/isolation [] Abandonment Spirituality of Patient [] Person of Amelia [] Attends Islam of their [place]elia [] Believes in Prayer [] Reads Bible or Scientology materials [] There are Spiritual issues to be addressed Music Specialist Interventions [] Prayer [] Active listening [] Non-anxious presence [] Spiritual/emotional support [] Crisis/trauma care [] Spiritual counseling [] Bereavement support [] Provided bereavement packet [] Provided Bible/devotional materials [] Provided toy/stuffed animal, coloring book to patient or family member [] Provided Communion [] Anointing/[place] [] Salvation [] Completed spiritual assessment [] Other: Impact on Illness or Injury [] Angry [] Fearful [] Anxious [] Often cries [] Exhaustion [] Unable to work [] Unable to attend restoration [] Unable to walk/stand [] Unable to read [] Unable to drive [] Unable to eat/drink [] Unable to sleep [] Unable to be with family [] Patient intubated [] Other: Summary Time spent with patient
[2023-04-11] MEDS: ketorolac 30 mg/mL INJ IVP (15:54)
[2023-04-11] MEDS: alum-mag-hydroxide-sime 30 mL UDC PO (20:45)
[2023-04-12] VITALS (24 sets, daily range): BP systolic 94–126; BP diastolic 66–84; PULSE 83–105; RESP 15–24; TEMP 36.8–37.2; O2SAT 89–95
[2023-04-12] MEDS: ketorolac 30 mg/mL INJ IVP ×2 (01:45→16:48)
[2023-04-12] MEDS: lactated ringers 1,000 ML 90 ML IV ×2 (01:47→20:18)
[2023-04-12] MEDS: oxyCODONE-APAP 10-325 mg Tablet PO (05:46)
--- NOTE | 2023-04-12 06:41 | PM.PN ---
Subjective Subjective: POD 2 Patient resting comfortably. Reports back pain. Denies any chest pain shortness of breath. Vitals/I&O/Wt Last Vital Signs Temp 98.4 F 04/12/23 04:00 Pulse 93 04/12/23 04:00 Resp 16 04/12/23 05:46 BP 100/67 04/12/23 04:00 Pulse Ox 95 04/12/23 04:00 O2 Del Method Nasal Cannula 04/12/23 04:00 O2 Flow Rate 2 04/12/23 04:00 04/11/23 04/11/23 04/12/23 14:59 22:59 06:59 Intake Total 770 / 770 1000 / 1770 Output Total 1125 / 1125 200 / 1325 Balance 770 / 770 -125 / 645 -200 / 445 Physical Exam Narrative: Patient presents alert and oriented x3 with a good general appearance normal mood and affect. Normal coordination normal stability. Mild tenderness around the incisional site with the incision appear to be and dry. Hemovacs intact. No signs of erythema or drainage. No signs of infection. Patient denies any fevers or chills. 4/5 motor strength both lower extremities with negative straight leg raise bilaterally. Calves are supple no medial thigh tenderness. Pulses are 2+ at the dorsalis pedis and posterior tibial region. Good capillary refill throughout normal sensation light touch both lower extremities. Urinary Catheter Management: Vargas: Cath Placed During This Visit: yes, but has since been removed by the nurse Reason for Continuing Indwelling Catheter: Decision to DC Catheter Urinary Catheter Date of Insertion: 04/10/23 Urinary Catheter Time of Insertion: 10:55 Date Urinary Catheter Removed: 04/11/23 Time Urinary Catheter Discontinued: 16:54 Data 04/10/23 18:13 A&P Assessment and plan (1) S/P spinal fusion: We will discontinue all Tylenol and switch to straight oxycodone due to her history of hepatitis C. We will discontinue Hemovac drains and change dressings to Silverlon. Continue incentive spirometry for pulmonary toilet. She is high risk of bleeding so we will continue the SCDs for DVT prophylaxis. Encourage mobilization with physical therapy. business services analyst on board to help with placement and ready for discharge when placement found. (2) Acute blood loss as cause of postoperative anemia: (3) Chronic back pain: Qualifiers: Back pain laterality: midline Back pain location: thoracic back pain Qualified Code(s): M54.6 - Pain in thoracic spine; G89.29 - Other chronic pain Attestations Medical Necessity Statement*: Ready for discharge when placement found. Coding Level of Care Code Acute Code for Chg Fwd Diagnoses S/P spinal fusion Z98.1 Acute blood loss as cause of postoperative anemia D62 Chronic back pain M54.6; G89.29 Back pain laterality: midline Back pain location: thoracic back pain
[2023-04-12 07:07] LABS: Hematocrit 21.2 % (37.0-47.0)
[2023-04-12 07:33] LABS: Hemoglobin 6.5 g/dL (11.5-15.3)
[2023-04-12] MEDS: morphine 4 mg/mL SDV 1 mL 2 MG IVP ×4 (09:55→18:32)
[2023-04-12] MEDS: levETIRAcetam 500 mg Tablet PO ×2 (10:00→17:55)
[2023-04-12] MEDS: levothyroxine 75 mcg Tablet PO (10:00)
[2023-04-12] MEDS: docusate sodium 100 mg Capsule PO ×2 (10:01→17:56)
[2023-04-12] MEDS: pantoprazole DR 40 mg Tablet PO (10:01)
[2023-04-12] MEDS: oxyCODONE 10 mg ER (12 HR) Tablet PO ×2 (10:01→17:55)
[2023-04-12] MEDS: duloxetine 30 mg Capsule PO ×2 (10:01→17:55)
[2023-04-12] MEDS: pregabalin 100 mg Capsule PO ×2 (10:05→20:18)
--- NOTE | 2023-04-12 12:28 | PC.NURSE ---
Upper and lower drain removed. 2x2 and tegaderm applied. Dressing replaced.
[2023-04-12] MEDS: FUROsemide 10 mg/mL SDV 2mL 20 MG IVP (17:56)
[2023-04-12] MEDS: oxyCODONE 5 mg IR Tab/Cap PO (22:41)
[2023-04-13] VITALS (17 sets, daily range): BP systolic 101–133; BP diastolic 65–88; PULSE 88–106; RESP 12–20; TEMP 36.4–37; O2SAT 91–94
[2023-04-13] MEDS: morphine 4 mg/mL SDV 1 mL 2 MG IVP ×5 (00:50→19:46)
[2023-04-13 05:23] LABS: Hematocrit 30.2 % (37.0-47.0); Hemoglobin 9.9 g/dL (11.5-15.3)
[2023-04-13] MEDS: oxyCODONE 5 mg IR Tab/Cap PO ×2 (05:55→22:41)
--- NOTE | 2023-04-13 06:51 | P.PN_ITS ---
Subjective Subjective: POD 2 Patient resting comfortably. Once presenting in the room patient then immediately begins stating she is in pain. Denies any leg pain. Denies any shortness of breath, chest pain, dizziness or headaches. Vitals/I&O/Wt Last Vital Signs Temp 98.2 F 04/13/23 04:00 Pulse 88 04/13/23 04:00 Resp 20 H 04/13/23 05:55 BP 120/82 04/13/23 05:55 Pulse Ox 91 04/13/23 05:55 O2 Del Method Room Air 04/12/23 16:00 O2 Flow Rate 2 04/12/23 04:00 04/12/23 04/12/23 04/13/23 14:59 22:59 06:59 Intake Total 1360 / 1360 710 / 2070 470 / 2540 Output Total 150 / 150 Balance 1210 / 1210 710 / 1920 470 / 2390 Physical Exam Narrative: Patient presents alert and oriented x3 with a good general appearance normal mood and affect.? Normal coordination normal stability.? Mild tenderness around the incisional site with the incision appear to be and dry. No signs of erythema or drainage.? No signs of infection.? Patient denies any fevers or chills.? 4/5 motor strength both lower extremities with negative straight leg raise bilaterally.? Calves are supple no medial thigh tenderness.? Pulses are 2+ at the dorsalis pedis and posterior tibial region.? Good capillary refill throughout normal sensation light touch both lower extremities. Urinary Catheter Management: Vargas: Cath Placed During This Visit: yes, but has since been removed by the nurse Reason for Continuing Indwelling Catheter: Decision to DC Catheter Urinary Catheter Date of Insertion: 04/10/23 Urinary Catheter Time of Insertion: 10:55 Date Urinary Catheter Removed: 04/11/23 Time Urinary Catheter Discontinued: 16:54 Data 04/13/23 05:14 A&P Assessment and plan (1) S/P spinal fusion: Slowly adjusting her pain medication to avoid overmedication. I have OxyContin 10 mg extended release as well as oxycodone 5 for breakthrough. She is very anxious this morning we will try 1 mg of Ativan IV once. Followed by implementing Valium 5mg 1 p.o. every 8 hours as needed anxiety and spasming. Encouraged her to continue incentive spirometry for pulmonary toilet. Enco uraged her to continue mobilizing the halls with physical therapy. She is high risk of bleeding therefore continue SCDs for DVT prophylaxis. She is set up to go to a nursing facility and is ready for discharge when placement and authorization completed. (2) Chronic back pain: Qualifiers: Back pain laterality: midline Back pain location: thoracic back pain Qualified Code(s): M54.6 - Pain in thoracic spine; G89.29 - Other chronic pain Attestations Medical Necessity Statement*: Awaiting authorization for placement to nursing facility Coding Level of Care Code Acute Code for Chg Fwd Diagnoses S/P spinal fusion Z98.1 Chronic back pain M54.6; G89.29 Back pain laterality: midline Back pain location: thoracic back pain
[2023-04-13] MEDS: lactated ringers 1,000 ML 90 ML IV ×2 (07:59→20:35)
[2023-04-13] MEDS: levothyroxine 75 mcg Tablet PO (09:09)
[2023-04-13] MEDS: levETIRAcetam 500 mg Tablet PO ×2 (09:09→17:36)
[2023-04-13] MEDS: pregabalin 100 mg Capsule PO ×2 (09:09→20:02)
[2023-04-13] MEDS: LORazepam 2 mg/mL INJ 1 mL 1 MG IVP (09:09)
[2023-04-13] MEDS: duloxetine 30 mg Capsule PO ×2 (09:09→17:37)
[2023-04-13] MEDS: pantoprazole DR 40 mg Tablet PO (09:09)
[2023-04-13] MEDS: docusate sodium 100 mg Capsule PO ×2 (09:09→17:37)
--- NOTE | 2023-04-13 10:29 | PC.SOCIAL ---
Imm update Imm updated with patient at bedside. Copy of page 2 provided. Patient verbalized understanding. Copy in chart initialed, dated and timed.
[2023-04-13] MEDS: oxyCODONE 10 mg ER (12 HR) Tablet PO ×2 (10:52→17:37)
--- NOTE | 2023-04-13 11:36 | PC.NURSE ---
Report given to RADHA Watt.
[2023-04-14] VITALS (10 sets, daily range): BP systolic 101–129; BP diastolic 67–85; PULSE 84–94; RESP 16–22; TEMP 36.4–37; O2SAT 89–93
[2023-04-14] MEDS: morphine 4 mg/mL SDV 1 mL 2 MG IVP ×4 (00:07→10:15)
[2023-04-14] MEDS: oxyCODONE 5 mg IR Tab/Cap PO ×2 (05:21→12:52)
--- NOTE | 2023-04-14 06:55 | PM.DCS ---
Discharge Providers Date of Admission: 04/10/23 13:26 Date of Discharge: April 14, 2023 Attending Provider at Admission: Jignesh Mcnamara DO Attending Provider at Discharge: Jignesh Mcnamara DO Primary Care Provider: Chico Sotelo MD Diagnoses at Discharge Discharge Diagnosis (1) S/P spinal fusion: Status: Acute (2) Chronic back pain: Status: Acute Qualifiers: Back pain laterality: midline Back pain location: thoracic back pain Qualified Code(s): M54.6 - Pain in thoracic spine; G89.29 - Other chronic pain Permanent problem details: posterior krystal and pedicle screw fixation extending from T10 through S1 with laminectomies at L4 and L5 Reason for Visit Reason for Visit: M54.2, M54.6, G89.29 Physical Exam Narrative: pain controlled pt sleeping when I walked into the room Urinary Catheter Management: Vargas: Cath Placed During This Visit: yes, but has since been removed by the nurse Reason for Continuing Indwelling Catheter: Decision to DC Catheter Urinary Catheter Date of Insertion: 04/10/23 Urinary Catheter Time of Insertion: 10:55 Date Urinary Catheter Removed: 04/11/23 Time Urinary Catheter Discontinued: 16:54 Discharge Data Studies Completed and Pending Completed Studies During Hospitalization Category Date Time Status XR lumbar spine 1V [id number] Routine Exams 04/10/23 Completed Laboratory Results WBC 12.0 10^3/uL (4.0-10.0) H 04/10/23 18:13 RBC 2.94 10^6/uL (4.1-5.3) L 04/10/23 18:13 Hgb 9.9 g/dL (11.5-15.3) L D 04/13/23 05:14 Hct 30.2 % (37.0-47.0) L D 04/13/23 05:14 MCV 103.1 fl (81-99) H D 04/10/23 18:13 MCH 31.3 pg (28.0-34.0) 04/10/23 18:13 MCHC 30.4 g/dL (30.0-36.0) D 04/10/23 18:13 RDW 13.1 % (12.1-15.1) 04/10/23 18:13 Plt Count 185 10^3/cmm (130-400) 04/10/23 18:13 MPV 8.7 fL (7.4-10.4) 04/10/23 18:13 Neut % (Auto) 91.2 % 04/10/23 18:13 Lymph % (Auto) 4.2 % 04/10/23 18:13 [place] % (Auto) 3.6 % 04/10/23 18:13 Eos % (Auto) 0.1 % 04/10/23 18:13 Baso % (Auto) 0.2 % 04/10/23 18:13 Neut # (Auto) 10.94 10^3/uL (1.8-7.7) H 04/10/23 18:13 Lymph # (Auto) 0.5 10^3/uL (0.8-4.8) L 04/10/23 18:13 [place] # (Auto) 0.4 10^3/uL (0.2-0.9) 04/10/23 18:13 Eos # (Auto) 0.0 10^3/uL (0.0-0.8) 04/10/23 18:13 Baso # (Auto) 0.0 10^3/uL (0.0-0.1) 04/10/23 18:13 Nucleated RBC % (auto) 0 % 04/10/23 18:13 Nucleated RBCs # 0.0 /100WBC 04/10/23 18:13 Urine Color Yellow (Yellow) 04/10/23 09:44 Urine Appearance Clear (CLEAR) 04/10/23 09:44 Urine pH 7 (5-7) 04/10/23 09:44 Ur Specific [place] 1.010 (1.005-1.030) 04/10/23 09:44 Urine Protein Neg (Negative) 04/10/23 09:44 Urine Glucose (UA) Norm (Normal) 04/10/23 09:44 Urine Ketones Negative (Negative) 04/10/23 09:44 Urine Blood Neg (Negative) 04/10/23 09:44 Urine Nitrate Negative (Negative) 04/10/23 09:44 Urine Bilirubin Neg (Negative) 04/10/23 09:44 Urine Urobilinogen Norm mg/dL (Negative) 04/10/23 09:44 Ur Leukocyte Esterase 1+ (Negative) H 04/10/23 09:44 Urine RBC 0-4 /hpf (0-2) H 04/10/23 09:44 Urine WBC 5-10 /hpf (0-5) H 04/10/23 09:44 Ur Squamous Epith Cells 0-4 /hpf (0-5) H 04/10/23 09:44 Ur Renal Epithelial Cell 3 /hpf 04/10/23 09:44 Amorphous Sediment Not Reportable 04/10/23 09:44 Urine Bacteria Trace /hpf (NONE) 04/10/23 09:44 Blood Type O Positive 04/10/23 09:05 Rho(D) Type Positive 04/10/23 09:05 Antibody Screen Negative 04/10/23 09:05 Crossmatch See Detail 04/10/23 09:05 Vitals Last Vital Signs Temp 98.6 F 04/14/23 05:00 Pulse 85 04/14/23 05:00 Resp 16 04/14/23 05:21 BP 129/85 04/14/23 05:00 Pulse Ox 93 04/14/23 05:00 O2 Del Method Room Air 04/13/23 15:24 O2 Flow Rate 2 04/12/23 04:00 Discharge Plan Discharge Patient Disposition: Xfer Other Condition: Stable Prescriptions: New oxycodone 5 mg tablet 5 - 10 mg PO Q4H PRN (Reason: pain) 7 Days Qty: 40 0RF Continued (DME) Walker See Rx Instructions .Route .MEDSUPPLY Qty: 1 0RF Rx Instructions: As directed (DME) TLSO Brace See Rx Instructions .Route .MEDSUPPLY Qty: 1 0RF Rx Instructions: As directed Keppra XR 750 mg tablet extended release 24 hr 750 mg PO BEDTIME Qty: 90 1RF levothyroxine 75 mcg tablet 75 mcg PO DAILY Qty: 90 1RF pantoprazole 40 mg tablet,delayed release (DR/EC) 40 mg PO DAILY Qty: 90 1RF duloxetine 30 mg capsule,delayed release(DR/EC) 30 mg PO BID Qty: 60 5RF promethazine 25 mg tablet 25 mg PO Q6H PRN (Reason: nausea and vomiting) Qty: 30 0RF (DME) Intraoperative neuromonitoring See Rx Instructions .Route .MEDSUPPLY Qty: 1 0RF Rx Instructions: As directed (DME) Bone Growth Stimulator E0748 See Rx Instructions .Route .MEDSUPPLY Qty: 1 0RF Rx Instructions: As directed tizanidine 4 mg tablet 4 mg PO BID PRN (Reason: Muscle Spasm) Tums 200 mg calcium (500 mg) Tablet,Chewable 1,000 mg PO TID albuterol sulfate 90 mcg/actuation HFA aerosol inhaler 2 puff INHALATION QID PRN (Reason: Shortness Of Breath) oxycodone 5 mg tablet 5 mg PO Q4H MDD 4 tabs PRN (Reason: Pain) pregabalin 200 mg capsule 200 mg PO Q12H Vitamin D3 125 mcg (5,000 unit) Tablet 125 mcg PO DAILY Referrals: Jignesh Mcnamara DO [Physician] - 04/20/23 3:15 pm Discharge Diet: Advance as tolerated Discharge Activity: Limit activity as instructed Patient Instructions: Opioid Safety Activity Restrictions/Additional Instructions: Thank you for choosing [facility] for your care! The following is a list of instructions, from your provider, to follow upon your discharge to ensure you have the optimal recovery from your recent injury or surgery. Follow-up care is a avalos part of your treatment and safety. Be sure to make and go to all appointments and call your doctor if you are having problems. If you do not already have a follow-up appointment made, call Dr. Mcnamara's] office in the next 1-3 days to make follow up appointment for [address] Mcnamara at [phone]. It is also a good idea to know your test results and keep a list of the medicines you take. Medications will be prescribed for you at your provider's discretion. These medications are to be used as instructed; if they are taken more often that prescribed they will not be refilled early and in most cases will not be refilled at all. > When a refill is needed, you should contact keyshawn stratton 2-3 business days before your prescription runs out. Medications will NOT be refilled by reproduction machine loader providers after hours! > Many pain medications contain Tylenol (Acetaminophen). Do not consume more than 4,000 mg of Tylenol per day in total with any combination of medications. > Pain medications can cause constipation. Please use an over the counter stool softener as directed, while taking pain medications. Consult your local pharmacist with questions or recommendations on stool softeners. If constipation persists, contact our office or your primary care provider. > While under our care, you are not to receive pain medications or other controlled substances from any other provider unless our office is notified and approves. Any attempts to do so will result in refusal to prescribe any further pain medications and possible dismissal from our practice. ? Walking is essential for the healing process after surgery. We would like you to slowly advance your walking. This should be done on relatively flat clear ground (inside or out) or can be done on a treadmill. Remember this goal does not have to happen all at once, slowly increase your distance and duration. This can be broken into more more than one walk per day as tolerated. Patients who walk as directed after surgery rarely require Physical Therapy. In the unlikely event this issue arises your provider will direct hospital staff to make the appropriate arrangements. ? No lifting over 5 pounds {a gallon of milk) or bending/twisting until further notice. Each of these activities places an unnecessary amount of stress onto the body and can impede the delicate healing process. > Instead of bending at the waist, keep your back straight and bend at the knees. > Instead of twisting your torso, keep your back straight and turn your entire body with your feet. ? You may sleep in any position which makes you comfortable. Many patients find comfort sleeping in a reclining chair. It is not abnormal to have difficulty sleeping for the first several weeks following your surgery. We recommend trying Benadry! or Tylenol PM as directed to help with your sleeping difficulties. Both medications are over the counter and available without prescription. ? NO SMOKING!!! Smoking dramatically increases the probability of developing postoperative wound infections. ? Common complaints after lumbar and/or thoracic spine surgery include, but are not limited to: numbness and/or tingling in the legs, pain around the incision and surrounding tissues, muscle spasms, or stiffness of the middle to low back. Contact our office if these symptoms persist or if an acute change occurs. ? No driving for the first 3-5days, and not while taking narcotics until seen at your follow-up appointment and cleared. There are no restrictions for riding on short trips, however if you take a longer trip, arrangements should be made to make regular stops to get out of the vehicle and stretch . ? Swelling is an unfortunate event that will take place with any surgery and is the primary source of your postoperative discomfort. While walking and regular approved activities helps control inflammation, there are additional steps you can take to minimize swelling. > Place ice over the surgical site and surrounding tissue for twenty minutes, followed by applying a low/medium heat (heating pad) for an additional twenty minutes every 1-2 hours as needed for painrelief. > You may use of over the counter anti-inflammatory medications (Ibuprofen, Motrin, Aleve, Advil, etc) as directed on the package label. These types of medicines will significantly reduce the amount of discomfort you experience after surgery from swelling. It should be noted that if you have and allergy to any of these medications, or a history of ulcers or kidney disease you should consult you primary care provider prior to starting these medications. Discharge Attestations Time Spent in Discharge Care*: less than 30 min Quality Metrics Clinical Quality Measures [ No reported AMI, CVA or VTE this stay] Coding Level of Care Code Acute Code for Chg Fwd Diagnoses S/P spinal fusion Z98.1 Chronic back pain M54.6; G89.29 Back pain laterality: midline Back pain location: thoracic back pain
[2023-04-14] MEDS: duloxetine 30 mg Capsule PO (08:27)
[2023-04-14] MEDS: lactated ringers 1,000 ML 90 ML IV (08:27)
[2023-04-14] MEDS: oxyCODONE 10 mg ER (12 HR) Tablet PO (08:27)
[2023-04-14] MEDS: pantoprazole DR 40 mg Tablet PO (08:27)
[2023-04-14] MEDS: pregabalin 100 mg Capsule PO (08:27)
[2023-04-14] MEDS: levETIRAcetam 500 mg Tablet PO (08:27)
[2023-04-14] MEDS: docusate sodium 100 mg Capsule PO (08:27)
[2023-04-14] MEDS: levothyroxine 75 mcg Tablet PO (08:27)
[2023-04-14] MEDS: diazePAM 5 mg Tablet PO (10:15)
--- NOTE | 2023-04-14 10:59 | PC.NURSE ---
Called Matthew Morales to give report on patient, however, nurse taking over care for Ms. Watters was unable to take my call and will have to call me back. Will reattempt in 1 hour if I have not heard back from her.
[2023-04-14 11:15] LABS: SARS Covid-2 Antigen negative (Negative)
== END 2023-04-14 13:07 | disposition skilled nursing facility (03) | DRG 454 ==
LOC: MEDSURG 13:27
PROVIDERS: Anesthesiology; Physician Assistant; Admitting Provider Orthopaedic Surgery; PCP Family Medicine Adult Medicine; Visit Provider Orthopaedic Surgery
PROC: 0RG707J Fusion of 2 to 7 Thoracic Vertebral Joints with Autologous Tissue Substitute, Posterior Approach, Anterior Column, Open Approach (ICD-10-PCS; 2023-04-10 10:05)
DX: T84.84XA Pain due to internal orthopedic prosthetic devices, implants and grafts, initial encounter (principal); D62 Acute posthemorrhagic anemia; G89.28 Other chronic postprocedural pain; Y79.8 Miscellaneous orthopedic devices associated with adverse incidents, not elsewhere classified; M54.6 Pain in thoracic spine; Z79.891 Long term (current) use of opiate analgesic; K22.70 Barrett's esophagus without dysplasia; Z98.1 Arthrodesis status; F32.A Depression, unspecified; K21.9 Gastro-esophageal reflux disease without esophagitis; F10.11 Alcohol abuse, in remission; Z86.19 Personal history of other infectious and parasitic diseases; E03.9 Hypothyroidism, unspecified; M81.0 Age-related osteoporosis without current pathological fracture; R56.9 Unspecified convulsions; Z87.891 Personal history of nicotine dependence; Z79.51 Long term (current) use of inhaled steroids
CPT/HCPCS: 36415; 36430; 51702; 72020; 76000; 81001; 85014; 85018; 85025; 86850; 86900; 86920; 87426; 97110; 97116; 97161; 97530; C1713; C1762; J0690; J1100; J1170; J1644; J1790; J1885; J1940; J2060; J2270; J2405; J2704; J3010; J3370; J3490; J7030; J7120; P9016; P9045

== ENCOUNTER → 2023-04-20 14:55 | Outpatient (BNVA) | payer MEDICARE, MEDICAID, SELFPAY | PROVIDERS: PCP Family Medicine Adult Medicine; Visit Provider Physician Assistant | DX: Z98.1 Arthrodesis status (principal) | CPT/HCPCS: 99024 ==

== ENCOUNTER → 2023-04-27 08:34 | Outpatient (BNVA) | payer MEDICARE, MEDICAID, SELFPAY | PROVIDERS: PCP Family Medicine Adult Medicine; Visit Provider Orthopaedic Surgery | DX: Z98.1 Arthrodesis status (principal) | CPT/HCPCS: 99024 ==

== ENCOUNTER → 2023-05-23 13:08 | Outpatient (BNVA) | payer MEDICARE, MEDICAID, SELFPAY | PROVIDERS: PCP Family Medicine Adult Medicine; Visit Provider Physician Assistant | DX: Z47.89 Encounter for other orthopedic aftercare; Z98.1 Arthrodesis status; L76.82 Other postprocedural complications of skin and subcutaneous tissue | CPT/HCPCS: 72070; 99024 ==

== ENCOUNTER → 2023-05-24 13:08 | Outpatient (BNVA) | payer MEDICARE, MEDICAID, SELFPAY | PROVIDERS: PCP Family Medicine Adult Medicine; Visit Provider Internal Medicine | DX: E55.9 Vitamin D deficiency, unspecified (principal); M81.0 Age-related osteoporosis without current pathological fracture | CPT/HCPCS: 99214 ==

== ENCOUNTER → 2023-05-30 08:36 | Outpatient (BNVA) | payer MEDICARE, MEDICAID, SELFPAY | PROVIDERS: PCP Family Medicine Adult Medicine; Visit Provider Orthopaedic Surgery | DX: Z98.1 Arthrodesis status (principal); Z47.89 Encounter for other orthopedic aftercare | CPT/HCPCS: 72070; 72100; 99024 ==

== ENCOUNTER → 2023-07-11 08:07 | Outpatient (BNVA) | payer MEDICARE, MEDICAID, SELFPAY | PROVIDERS: PCP Family Medicine Adult Medicine; Visit Provider Orthopaedic Surgery | DX: Z98.1 Arthrodesis status | CPT/HCPCS: 72072; 72100; 99024 ==

== ENCOUNTER 2023-07-12 11:28 | Outpatient (RCR) | payer MEDICARE, MEDICAID, SELFPAY | END 2023-07-22 23:59 | disposition home or self-care (01) | LOC: SPT 11:28 | PROVIDERS: PCP Family Medicine Adult Medicine; Visit Provider Orthopaedic Surgery | DX: Z98.1 Arthrodesis status (principal); M54.2 Cervicalgia | CPT/HCPCS: 97110; 97161 ==

== ENCOUNTER 2023-07-23 06:00 | Outpatient (RCR) | payer MEDICARE, MEDICAID, SELFPAY | END 2023-08-22 23:59 | disposition home or self-care (01) | LOC: SPT 06:00 | PROVIDERS: PCP Family Medicine Adult Medicine; Visit Provider Orthopaedic Surgery | DX: M54.2 Cervicalgia (principal); Z98.1 Arthrodesis status | CPT/HCPCS: 97110 ==

== ENCOUNTER → 2023-08-01 10:37 | Outpatient (BNVA) | payer MEDICARE, MEDICAID, SELFPAY | PROVIDERS: PCP Family Medicine Adult Medicine; Visit Provider Family Medicine Adult Medicine | DX: D63.8 Anemia in other chronic diseases classified elsewhere (principal); E03.9 Hypothyroidism, unspecified; R56.9 Unspecified convulsions; M81.0 Age-related osteoporosis without current pathological fracture | CPT/HCPCS: 80053; 84443; 85025 ==

== ENCOUNTER → 2023-08-22 08:26 | Outpatient (BNVA) | payer MEDICARE, MEDICAID, SELFPAY | PROVIDERS: PCP Family Medicine Adult Medicine; Visit Provider Orthopaedic Surgery | DX: Z98.1 Arthrodesis status (principal); Z47.89 Encounter for other orthopedic aftercare | CPT/HCPCS: 72072; 72100; 99213 ==

== ENCOUNTER 2023-08-23 06:00 | Outpatient (RCR) | payer MEDICARE, MEDICAID, SELFPAY | END 2023-09-21 23:59 | disposition home or self-care (01) | LOC: SPT 06:00 | PROVIDERS: PCP Family Medicine Adult Medicine; Visit Provider Orthopaedic Surgery | DX: M54.2 Cervicalgia (principal); Z98.1 Arthrodesis status | CPT/HCPCS: 97110 ==

== ENCOUNTER 2023-09-22 06:00 | Outpatient (RCR) | payer MEDICARE, MEDICAID, SELFPAY | END 2023-10-22 23:59 | disposition home or self-care (01) | LOC: SPT 06:00 | PROVIDERS: PCP Family Medicine Adult Medicine; Visit Provider Orthopaedic Surgery | DX: Z98.1 Arthrodesis status (principal); M54.2 Cervicalgia | CPT/HCPCS: 97110 ==

== ENCOUNTER → 2023-10-04 13:38 | Outpatient (BNVA) | payer MEDICARE, MEDICAID, SELFPAY | PROVIDERS: PCP Family Medicine Adult Medicine; Visit Provider Physician Assistant | DX: R07.89 Other chest pain (principal); Z98.1 Arthrodesis status; S20.219A Contusion of unspecified front wall of thorax, initial encounter; W19.XXXA Unspecified fall, initial encounter | CPT/HCPCS: 71046; 71120; 72070; 72100; 99214 ==

== ENCOUNTER 2023-10-23 06:00 | Outpatient (RCR) | payer MEDICARE, MEDICAID, SELFPAY | END 2023-11-22 23:59 | disposition home or self-care (01) | LOC: SPT 06:00 | PROVIDERS: PCP Family Medicine Adult Medicine; Visit Provider Orthopaedic Surgery | DX: M54.2 Cervicalgia (principal); Z98.1 Arthrodesis status | CPT/HCPCS: 97110 ==

== ENCOUNTER → 2023-11-02 08:26 | Outpatient (BNVA) | payer MEDICARE, MEDICAID, SELFPAY | PROVIDERS: PCP Family Medicine Adult Medicine; Visit Provider Internal Medicine | DX: M81.0 Age-related osteoporosis without current pathological fracture (principal); E55.9 Vitamin D deficiency, unspecified; Z91.81 History of falling; R26.81 Unsteadiness on feet | CPT/HCPCS: 36415; 82306; 99214 ==

== ENCOUNTER → 2023-11-09 08:55 | Outpatient (BNVA) | payer MEDICARE, MEDICAID, SELFPAY | PROVIDERS: PCP Family Medicine Adult Medicine; Visit Provider Family Medicine Adult Medicine | DX: E03.9 Hypothyroidism, unspecified (principal); J40 Bronchitis, not specified as acute or chronic; M54.6 Pain in thoracic spine; G89.29 Other chronic pain; Z98.1 Arthrodesis status; J44.9 Chronic obstructive pulmonary disease, unspecified; H93.92 Unspecified disorder of left ear; Z87.891 Personal history of nicotine dependence; J41.0 Simple chronic bronchitis | CPT/HCPCS: 84443 ==

== ENCOUNTER → 2023-11-21 07:50 | Outpatient (BNVA) | payer MEDICARE, MEDICAID, SELFPAY | PROVIDERS: PCP Family Medicine Adult Medicine; Visit Provider Orthopaedic Surgery | DX: G89.29 Other chronic pain; Z47.89 Encounter for other orthopedic aftercare; M54.6 Pain in thoracic spine | CPT/HCPCS: 72100; 99213 ==

== ENCOUNTER 2023-11-23 06:00 | Outpatient (RCR) | payer MEDICARE, MEDICAID, SELFPAY | END 2023-11-29 23:59 | disposition home or self-care (01) | LOC: SPT 06:00 | PROVIDERS: PCP Family Medicine Adult Medicine; Visit Provider Orthopaedic Surgery | DX: M54.2 Cervicalgia (principal); Z98.1 Arthrodesis status | CPT/HCPCS: 97110 ==

== ENCOUNTER → 2024-01-24 07:27 | Outpatient (BNVA) | payer MEDICARE, MEDICAID, SELFPAY | PROVIDERS: PCP Family Medicine Adult Medicine; Visit Provider Otolaryngology | DX: J34.0 Abscess, furuncle and carbuncle of nose (principal); S00.31XA Abrasion of nose, initial encounter; X58.XXXA Exposure to other specified factors, initial encounter | CPT/HCPCS: 99203 ==

== ENCOUNTER → 2024-02-29 15:02 | Outpatient (BNVA) | payer MEDICARE, MEDICAID, SELFPAY | PROVIDERS: PCP Family Medicine Adult Medicine; Visit Provider Orthopaedic Surgery | DX: M54.6 Pain in thoracic spine (principal); G89.29 Other chronic pain; M54.9 Dorsalgia, unspecified; Z98.1 Arthrodesis status | CPT/HCPCS: 72070; 72100; 99214 ==

== ENCOUNTER → 2024-05-14 14:34 | Outpatient (BNVA) | payer MEDICARE, MEDICAID, SELFPAY | PROVIDERS: PCP Family Medicine Adult Medicine; Visit Provider Orthopaedic Surgery | DX: M54.50 Low back pain, unspecified (principal); Z98.1 Arthrodesis status; M54.6 Pain in thoracic spine; G89.29 Other chronic pain | CPT/HCPCS: 72110; 99213 ==

== ENCOUNTER 2024-05-30 08:02 | Outpatient (RCR) | payer MEDICARE, MEDICAID, SELFPAY | END 2024-06-22 23:59 | disposition home or self-care (01) | LOC: SPT 08:02 | PROVIDERS: PCP Family Medicine Adult Medicine; Visit Provider Orthopaedic Surgery | DX: M54.9 Dorsalgia, unspecified (principal); G89.29 Other chronic pain | CPT/HCPCS: 97110; 97161 ==

== ENCOUNTER 2024-06-23 06:00 | Outpatient (RCR) | payer MEDICARE, MEDICAID, SELFPAY | END 2024-07-22 23:59 | disposition home or self-care (01) | LOC: SPT 06:00 | PROVIDERS: PCP Family Medicine Adult Medicine; Visit Provider Orthopaedic Surgery | DX: M54.9 Dorsalgia, unspecified (principal); G89.29 Other chronic pain | CPT/HCPCS: 97110 ==

== ENCOUNTER 2024-07-15 11:04 | Outpatient (CLI) | payer MEDICARE, MEDICAID, SELFPAY ==
[2024-07-15 11:26] LABS: Basophils # 0.1 10^3/uL (0.0-0.1); Basophils % 0.8 %; Eosinophils # 0.2 10^3/uL (0.0-0.8); Eosinophils % 2.9 %; Hematocrit 43.6 % (36-47); Lymphocytes % 27.2 %; Mean Corpuscular HGB Conc 32.1 g/dL (30-55); Mean Corpuscular Hemoglobin 31.9 pg (27-33); Mean Corpuscular Volume 99.3 fl (85-98); Mean Platelet Volume 8.3 fL (7.4-10.4); Monocytes # 0.7 10^3/uL (0.2-0.9); Monocytes % 9.1 %; Neutrophils % 59.7 %; Nucleated Red Blood Cells % 0 %; Platelet Count 264 10^3/cmm (157-399); Red Blood Count 4.39 10^6/uL (3.85-5.65); Red Cell Distribution Width 12.7 % (12.1-15.1); White Blood Count 7.36 10^3/uL (3.29-11.43)
--- NOTE | 2024-07-15 11:56 | XRR_ITS ---
PROCEDURE INFORMATION: Exam: XR Chest Exam date and time: 07/15/2024 12:02 PM Age: 63 years old Clinical indication: Chest wall pain; Additional info: Rib pain TECHNIQUE: Imaging protocol: Radiologic exam of the chest. Views: 2 views. COMPARISON: CR XR chest 2V* [id number] 10/04/2023 2:12 PM FINDINGS: Airway: Patent Lungs: 9 mm nodular opacity left lung base. Not seen on prior or on the lateral view. Pleural spaces: Unremarkable. No pleural effusion. No pneumothorax. Heart/Mediastinum: Unremarkable. No cardiomegaly. Bones/joints: Tendon anchors in the right humeral head. Extensive thoracic spine fixation hardware without complications and in normal alignment. Healed fracture posterior segment right 5th rib. Kyphoplasty changes at 2 upper thoracic vertebra. No acute fracture. XR/XR chest 2V* [id number] IMPRESSION: 9 mm nodular opacity left lung base. Not seen on prior or on the lateral view. Could be related to a true pulmonary nodule, artifact from superimposition, or scarring/atelectasis. Follow-up chest CT without contrast recommended. COMMENTS: Consider correlation with dedicated rib films for better assessment of rib fractures.
--- NOTE | 2024-07-15 11:56 | XRR_ITS ---
PROCEDURE INFORMATION: Exam: XR Thoracic Spine Exam date and time: 07/15/2024 12:02 PM Age: 63 years old Clinical indication: Pain in thoracic spine; Prior surgery; Surgery date: 6+ months; Surgery type: Thoracic fusion; Patient HX: Chest pains and mid back pain since fall in March 15, pain mostly on right side TECHNIQUE: Imaging protocol: Radiologic exam of the thoracic spine. Views: 3 views. COMPARISON: CR XR thoracic spine 2V [id number] 02/29/2024 3:08 PM FINDINGS: Bones/joints: Stable posterior fusion throughout the entirety of the thoracic spine with kyphoplasty changes at 2 upper thoracic vertebra. No evidence of hardware complications. Specifically, no evidence for hardware loosening or periprosthetic fractures. No acutely displaced fractures. No joint dislocation. Stable chronic mild compression deformities at least 3 midthoracic vertebra. Moderate multilevel degenerative changes of the spine. Soft tissues: Unremarkable. XR/XR thoracic spine 3V* [id number] IMPRESSION: No acute skeletal pathology or hardware complications.
[2024-07-15 12:02] LABS: Albumin Level 4.1 g/dL (3.5-5.2); Alkaline Phosphatase 98 U/L (35-105); Blood Urea Nitrogen 9 mg/dL (8-23); Calcium 9.5 mg/dL (8.5-10.5); Carbon Dioxide 22 mmol/L (22-29); Chloride 101 mmol/L (98-107); Globulin 3.4 g/dL (1.3-4.6); Glucose 84 mg/dL (65-115); Osmolality Calculated 276 mOsm/kg (285-295); Sodium 134 mmol/L (136-145); Thyroid Stimulating Hormone 0.48 uIU/mL (0.27-4.20); Total Bilirubin 0.4 mg/dL (0.15-1.2); Total Protein 7.5 g/dL (6.6-8.7)
[2024-07-15 12:18] LABS: Anion Gap 15.4 (5-19); Potassium 4.4 mmol/L (3.5-5.1)
[2024-07-15 12:19] LABS: Alanine Aminotransferase 9 U/L (0-33); Aspartate Amino Transferase 25 U/L (0-32)
== END 2024-07-15 11:05 | disposition home or self-care (01) ==
LOC: LAB 11:06
PROVIDERS: PCP Family Medicine Adult Medicine; Visit Provider Pediatrics
DX: R91.8 Other nonspecific abnormal finding of lung field (principal); E03.9 Hypothyroidism, unspecified; M54.6 Pain in thoracic spine; M43.24 Fusion of spine, thoracic region; Z98.890 Other specified postprocedural states
CPT/HCPCS: 36415; 71046; 72072; 80053; 84443; 85025

== ENCOUNTER 2024-07-17 08:02 | Outpatient (CLI) | payer MEDICARE, MEDICAID, SELFPAY ==
--- NOTE | 2024-07-17 08:05 | XRR_ITS ---
PROCEDURE INFORMATION: Exam: XR Ribs Exam date and time: 07/17/2024 8:16 AM Age: 63 years old Clinical indication: Chest wall pain; Bilateral; Prior surgery; Surgery date: 6+ months; Surgery type: Thoracic fusion; Patient HX: Chest pains and mid back pain since fall in March 15, pain mostly on right side; Additional info: Rib pain TECHNIQUE: Imaging protocol: Radiologic exam of the of the ribs. Views: 3 views. Bilateral ribs. COMPARISON: CR XR chest 2V* [id number] 07/15/2024 12:02 PM FINDINGS: Bones/joints: Prior surgery to the right humerus including suture anchors. Extensive pedicle screws and rods in the thoracic and lumbar spine. Multilevel midthoracic kyphoplasty. No displaced rib fracture. Pleural space: No pneumothorax, hemothorax, or pleural based hematoma. Soft tissues: Normal. Other findings: . XR/XR ribs BI 3V* [id number] IMPRESSION: No acute findings.
== END 2024-07-17 08:03 | disposition home or self-care (01) ==
LOC: RAD 08:04
PROVIDERS: PCP Family Medicine Adult Medicine; Visit Provider Pediatrics
DX: R07.81 Pleurodynia (principal); M43.24 Fusion of spine, thoracic region
CPT/HCPCS: 71110

== ENCOUNTER 2024-08-06 14:27 | Outpatient (CLI) | payer MEDICARE, MEDICAID, SELFPAY ==
--- NOTE | 2024-08-06 07:30 | CT_ITS ---
WS: [id number] CT HEAD NONCONTRAST HISTORY: delayed communication TECHNIQUE: Contiguous axial imaging performed through the brain. Bone and soft tissue windows. Sagitt al and coronal reformats reviewed. All CT scans at [facility] use at least one of these dose optimization techniques: automated exposure control; mA and/or kV adjustment per patient size (includ es targeted exams where dose is matched to clinical indication); or iterative reconstruction. DLP: 1086.88 mGy.cm COMPARISON: 01/09/2023 Moderate bilateral frontal lobe atrophy. Mild temporal lobe atrophy. Small lacunar infarct in the LEF T insular ribbon. Additional small lacunar infarct in the RIGHT basal ganglia. No large territory inf arct. Additional small lacunar infarct in the villegas-white matter junction of the RIGHT parietal occipi cele region. Mild cerebellar atrophy. Ventricles: Normal size with no hydrocephalus. No inferior displacement of the cerebellar tonsils. Paranasal sinuses: Frothy secretions in the RIGHT maxillary sinus. Mastoid air cells: Well pneumatized. Calvarium and scalp: Skull is intact with no soft tissue edema or swelling. CT/CT head wo con* [id number] IMPRESSION: 1. No acute intracranial hemorrhage or edema. 2. Moderate bifrontal lobe atrophy. Small lacunar infarcts as described above with mild small vessel disease. Similar to the prior study from 01/09/2023.
== END 2024-08-06 14:28 | disposition home or self-care (01) ==
PROVIDERS: PCP Family Medicine Adult Medicine
DX: G31.9 Degenerative disease of nervous system, unspecified (principal); R56.9 Unspecified convulsions
CPT/HCPCS: 70450

== ENCOUNTER 2025-01-09 11:50 | Emergency (ER) | payer MEDICARE, MEDICAID, SELFPAY ==
[2025-01-09] VITALS (7 sets, daily range): BP systolic 106–131; BP diastolic 73–90; PULSE 73–92; RESP 16; O2SAT 90–97; BMI 25.8
--- NOTE | 2025-01-09 12:01 | CT_ITS ---
WS: [id number] CT HEAD NONCONTRAST HISTORY: SYMPTOMS OF ACUTE STROKE, right-sided weakness. Severe LEFT neck pain. TECHNIQUE: Contiguous axial imaging performed through the brain. Bone and soft tissue windows. Sagittal and coronal reformats reviewed. All CT scans at [facility] use at least one of these dose optimization techniques: automated exposure control; mA and/or kV adjustment per patient size (includes targeted exams where dose is matched to clinical indication); or iterative reconstruction. DLP: 1151.98 mGy COMPARISON: 08/06/2024 No acute intracranial hemorrhage, midline shift or mass effect. Mild atrophy and mild small vessel disease. No prior infarct. Perivascular space versus lacunar infarct along the inferior RIGHT basal ganglia. Ventricles: Normal size with no hydrocephalus. No anterior displacement of the cerebellar tonsils. Paranasal sinuses: Mild mucoperiosteal disease. No air-fluid levels. Mastoid air cells: Well pneumatized. Calvarium and scalp: Skull is intact with no soft tissue edema or swelling. Calcified atherosclerotic plaque in the intracranial carotid arteries. CT/CT head thrombolytic [id number] IMPRESSION: 1. No acute intracranial hemorrhage or edema. 2. Mild cerebral atrophy and small vessel disease. Notified Dr. Winslow at 01/09/2025 12:11 PM.
--- NOTE | 2025-01-09 12:03 | ECG_ITS ---
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 Measurements Intervals [place] Rate: 82 P: 56 WA: 170 QRS: 67 QRSD: 89 T: 69 QT: 350 QTc: 409 Interpretive Statements SINUS RHYTHM No previous ECG available for comparison Electronically Signed On 01-11-2025 07:43:44 CDT by Jeff Menjivar M.D. [email or web address]
--- NOTE | 2025-01-09 12:18 | XR_ITS ---
WS: [id number] Left shoulder, 3 views, 01/09/2025 Clinical Data: pain Comparison: None. Findings: No fractures or dislocations are seen. The AC joint shows moderate osteoarthritis. The glenohumeral joint shows minimal irregularity. The adjacent left clavicle, left scapula and ribs are normal. The soft tissues are unremarkable. There is a posterior thoracic fusion with bilateral pedicle screws and connecting rods. There are multiple levels of thoracic vertebroplasties. There is left carotid bifurcation calcification. There is a monitor lead on the chest wall. XR/XR shoulder LT min 2V* [id number] Impression: 1. Minimal osteoarthritis of the left glenohumeral joint. 2. 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
[2025-01-09 12:22] LABS: Basophils % 0.5 %; Eosinophils # 0.2 10^3/uL (0.0-0.8); Eosinophils % 3.7 %; Hematocrit 41.5 % (36-47); Lymphocytes % 34.5 %; Mean Corpuscular HGB Conc 32.5 g/dL (30-55); Mean Corpuscular Hemoglobin 31.1 pg (27-33); Mean Corpuscular Volume 95.6 fl (85-98); Mean Platelet Volume 8.4 fL (7.4-10.4); Monocytes # 0.5 10^3/uL (0.2-0.9); Monocytes % 8.8 %; Neutrophils % 52.3 %; Nucleated Red Blood Cells % 0 %; Platelet Count 284 10^3/cmm (157-399); Red Blood Count 4.34 10^6/uL (3.85-5.65); Red Cell Distribution Width 12.9 % (12.1-15.1); White Blood Count 5.92 10^3/uL (3.29-11.43)
[2025-01-09 12:24] LABS: Glucose Point of Care 109 mg/dL (70-110)
[2025-01-09 12:33] LABS: INR 0.91 (0.8-1.2)
[2025-01-09 12:34] LABS: Partial Thromboplastin Time 33.5 SECONDS (23.9-36.7)
[2025-01-09] MEDS: LORazepam 0.5 mg Tablet PO (12:35)
[2025-01-09 12:40] LABS: Creatine Phosphokinase 98 U/L (26-192)
[2025-01-09 12:41] LABS: Alanine Aminotransferase 9 U/L (0-33); Albumin Level 4.2 g/dL (3.5-5.2); Alkaline Phosphatase 104 U/L (35-105); Anion Gap 15.7 (5-19); Aspartate Amino Transferase 20 U/L (0-32); Blood Urea Nitrogen 9 mg/dL (8-23); Calcium 9.4 mg/dL (8.5-10.5); Carbon Dioxide 25 mmol/L (22-29); Chloride 102 mmol/L (98-107); Creatinine Clr Calc Pharmacy 97.8871; Globulin 3.5 g/dL (1.3-4.6); Glucose 108 mg/dL (65-115); Osmolality Calculated 287 mOsm/kg (285-295); Potassium 3.7 mmol/L (3.5-5.1); Sodium 139 mmol/L (136-145); Total Bilirubin 0.2 mg/dL (0.15-1.2); Total Protein 7.7 g/dL (6.6-8.7)
--- NOTE | 2025-01-09 13:18 | PC.PHAR ---
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
[2025-01-09 13:24] LABS: Bilirubin Urine Negative (Negative); Blood Urine Negative (Negative); Glucose Urine UA Negative (Normal); Ketones Urine Negative (Negative); Leukocyte Esterase Urine Negative (Negative); Nitrate Urine Negative (Negative); Protein Urine Negative (Negative); Specific Gravity, Urine 1.003 (1.005-1.030); Urine Appearance Clear (CLEAR); Urine Color Yellow (Yellow); Urobilinogen Urine 0.2 mg/dL (Negative); pH Urine 6.5 (5-7)
[2025-01-09 13:27] LABS: Add Urine Microscopic? YES; Bacteria Urine None Seen /hpf; Hyaline Casts Urine 0-4 /lpf; RBC Urine 0-2 /hpf (0-2); Squamous Epithelial Cell Urine 0-5 /hpf (0-5); WBC Urine 0-5 /hpf (0-5)
[2025-01-09 13:32] LABS: Amphetamines Screen Urine Negative (Negative); Barbiturates Screen Urine Negative (Negative); Benzodiazepines Screen Urine Negative (Negative); Cocaine Screen Urine Negative (Negative); Opiate Screen Urine Negative (Negative); PCP Screen Urine Negative (Negative); THC Screen Urine Positive (Negative)
[2025-01-09 13:33] LABS: Add Urine Culture? No
[2025-01-09] MEDS: ketorolac 30 mg/mL INJ 15 MG IVP (13:45)
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
== END 2025-01-09 15:22 | disposition home or self-care (01) ==
PROVIDERS: Emergency Provider Student in an Organized Health Care Education/Training Program; PCP Family Medicine Adult Medicine
DX: F43.9 Reaction to severe stress, unspecified (principal); G24.01 Drug induced subacute dyskinesia; F34.1 Dysthymic disorder; Z72.0 Tobacco use; J44.9 Chronic obstructive pulmonary disease, unspecified
CPT/HCPCS: 36416; 70450; 73030; 80053; 80306; 81001; 82550; 82962; 85025; 85610; 85730; 93005; 96374; 99285; J1885; J9999

== ENCOUNTER 2025-02-17 08:22 | Outpatient (CLI) | payer OTHER, MEDICAID, SELFPAY ==
--- NOTE | 2025-02-17 08:31 | XRR_ITS ---
PROCEDURE INFORMATION: Exam: XR Sacrum and Coccyx, 2 or More Views Exam date and time: 02/17/2025 8:43 AM Age: 64 years old Clinical indication: Pain in coccyx area; Prior surgery; Surgery date: 6+ months; Fall aug 2024, PT C/O sacrum/coccyx pain since with increased pain while sitting or lying down, PT has had multiple spinal fusions that included the sacrum TECHNIQUE: Imaging protocol: XR of the sacrum and coccyx, 2 or more views. COMPARISON: CR XR lumbar spine 2-3V* [id number] 11/21/2023 7:59 AM FINDINGS: Bones/joints: Extensive posterior lumbosacral fusion as well as fusion of each SI joint. Lucency surrounds the 2 screws crossing the right SI joint and the long screw crossing the left SI joint suggesting chronic loosening. Soft tissues: Normal. Other findings: Intact hardware. XR/XR sacrum coccyx min 2V [id number] IMPRESSION: Extensive postoperative findings with lucency surrounding several of the screws crossing each SI joint.
== END 2025-02-17 08:23 | disposition home or self-care (01) ==
PROVIDERS: PCP Family Medicine; Visit Provider Nurse Practitioner Family
DX: M53.3 Sacrococcygeal disorders, not elsewhere classified (principal); Z98.1 Arthrodesis status; R93.89 Abnormal findings on diagnostic imaging of other specified body structures
CPT/HCPCS: 72220

== ENCOUNTER 2025-02-20 09:32 | Outpatient (CLI) | payer OTHER, MEDICAID, SELFPAY ==
--- NOTE | 2025-02-20 09:39 | XR_ITS ---
WS: [id number] Left knee, 3 views, 02/20/2025 Clinical Data: L KNEE PAIN Comparison: None. Findings: No fractures or dislocations are seen. There is narrowing of the medial joint compartment. There is chondrocalcinosis of both the medial and lateral joint spaces. The patella shows a central posterior defect and a small anterior inferior defect possibly from old trauma. The soft tissues are unremarkable. XR/XR knee LT 3V* [id number] Impression: 1. Narrowing of the medial joint compartment of the left knee. 2. Chondral cartilage calcification of both the medial and lateral cartilages. 3. Patellar defects posteriorly and anteriorly, question old trauma
== END 2025-02-20 09:33 | disposition home or self-care (01) ==
PROVIDERS: PCP Family Medicine; Visit Provider Nurse Practitioner Family
DX: M17.12 Unilateral primary osteoarthritis, left knee (principal); R93.6 Abnormal findings on diagnostic imaging of limbs; M11.262 Other chondrocalcinosis, left knee
CPT/HCPCS: 73562

== ENCOUNTER → 2025-03-04 15:03 | Outpatient (BNVA) | payer OTHER, MEDICAID, SELFPAY | PROVIDERS: PCP Family Medicine; Visit Provider Orthopaedic Surgery | DX: Z98.1 Arthrodesis status (principal) | CPT/HCPCS: 72050; 72100; 99213 ==

== ENCOUNTER → 2025-03-05 08:37 | Outpatient (BNVA) | payer OTHER, MEDICAID, SELFPAY | PROVIDERS: PCP Family Medicine; Visit Provider Specialist | DX: M17.12 Unilateral primary osteoarthritis, left knee (principal); S89.92XA Unspecified injury of left lower leg, initial encounter; X58.XXXA Exposure to other specified factors, initial encounter | CPT/HCPCS: 73560; 73565; 99205 ==

== ENCOUNTER 2025-03-13 07:27 | Outpatient (CLI) | payer OTHER, MEDICAID, SELFPAY ==
--- NOTE | 2025-03-13 08:00 | MR_ITS ---
WS: [id number] MRI PELVIS WITH AND WITHOUT CONTRAST. COMPARISON: Lumbar radiograph 03/04/2025 Multiplanar, multisequence imaging is performed with and without contrast. Post MultiHance 16 mL IV. History: Possible bone lesion in the coccyx. Patient has extensive fusion hardware involving the lumbosacral region. There is an area of decreased signal involving the distal coccyx on the T2 sequences. On the T1 sequence there is increased signal. There is no enhancement. No soft tissue mass or distortion otherwise. No bone expansion. No surrounding edema. No additional similar findings within the bones of the pelvi s. Hip joints are symmetric bilaterally. Signal changes within the sacrum due to the high hardware. No free fluid in the pelvis. No adenopathy. MR/MR pelvis wo/w con [id number] IMPRESSION: 1. Focal signal abnormality within the coccyx is low on T2 sequences and does not enhance. This typically indicates calcification or fibrous tissue or hemosi angelic. Consider cartilaginous lesion. If patient is having pain consider additi onal imaging such as a bone scan to confirm there is no increased uptake. 2. Extensive lumbosacral fusion hardware.
[2025-03-13] MEDS: gadobenate dimeglumine 20 mL vial 16 ML IV (08:31)
== END 2025-03-13 07:28 | disposition home or self-care (01) ==
PROVIDERS: PCP Family Medicine; Visit Provider Orthopaedic Surgery
DX: M53.3 Sacrococcygeal disorders, not elsewhere classified (principal); R93.89 Abnormal findings on diagnostic imaging of other specified body structures; Z98.1 Arthrodesis status
CPT/HCPCS: 72197

== ENCOUNTER 2025-03-20 14:01 | Outpatient (CLI) | payer OTHER, MEDICAID, SELFPAY ==
--- NOTE | 2025-03-20 14:30 | MR_ITS ---
WS: [id number] MRI CERVICAL SPINE NONCONTRAST TECHNIQUE: Sagittal T1, T2 and STIR imaging. Axial T2, gradient, and fiesta imaging. CLINICAL INFORMATION: Neck pain COMPARISON: 2022 FINDINGS: Exaggeration of the normal cervical lordosis. Slight anterolisthesis C3 on C4 C4 on C5 and C5 on C6 and C6 on C7. Pannus formation at the C1-2 articulation. C2-C3: Mild facet arthropathy. Spinal canal and foramen are patent. C3-C4: Slight anterolisthesis C3 on C4. Slight indentation the RIGHT ventral cervical cord. Mild central canal stenosis. Moderate RIGHT bony foraminal narrowing. Advanced RIGHT facet arthropathy. C4-C5: Slight anterolisthesis. Mild RIGHT greater than LEFT bony foraminal narrowing. Moderate to advanced facet arthropathy. C5-C6: Slight anterolisthesis. Moderate to advanced facet arthropathy. Mild RIGHT bony foraminal narrowing. Spinal canal is patent. C6-C7: LEFT eccentric disc osteophyte complex. Mild LEFT bony foraminal narrowing. Uncovertebral joint hypertrophy. C7-T1: Spinal canal and foramen are patent. Visualized brain stem structures: Normal. Prevertebral soft tissues: Normal. MR/MR cervical spin wo con* [id number] IMPRESSION: 1. Mild cervical curve. Exaggeration of the normal cervical lordosis. 2. Mild central canal stenosis C3-C4 with slight indentation on the RIGHT vent ral cervical cord. 3. Moderate RIGHT C3-4 bony foraminal narrowing. Moderate LEFT C6-7 bony senia inal narrowing. 4. Advanced facet arthropathy RIGHT C3-4. 5. Mild LEFT C4-5 facet synovitis with moderate to advanced facet arthropathy. 6. Slight anterolisthesis C3-4 C4-5 C5-C6 and C6-C7. 7. Postoperative changes in the upper cervical spine
--- NOTE | 2025-03-20 15:15 | MRR_ITS ---
PROCEDURE INFORMATION: Exam: MR Left Lower Extremity Joint Without Contrast; left knee Exam date and time: 03/20/2025 2:53 PM Age: 64 years old Clinical indication: Pain and injury or trauma; Blunt trauma; Left; Injury date: 09/01/24; Injury details: Knee pain fall on 09-01-24 patella fracture seen on xray from 03/05/25; Prior surgery; Surgery date: 6+ months; Surgery type: Cervical spine, right knee tka; Additional info: Left knee injury TECHNIQUE: Imaging protocol: Magnetic resonance imaging of the left lower extremity joint without contrast. Exam focused on the left knee COMPARISON: CR XR knees AP WB w LT lmt ORTH 03/05/2025 8:39 AM FINDINGS: Nonspecific diffuse marrow heterogeneity. No dislocation . Re-identified minimally displaced mildly-comminuted intra-articular patellar fracture with associated marrow edema. Mild loss of patellofemoral joint space with preserved trochlear cartilage at up to severe chondromalacia patella. Mild loss of medial and lateral compartment joint spaces with prominent chondrocalcinosis (better seen on recent radiographs) and intact articular cartilages. Small joint effusion Medial meniscus demonstrates a large horizontal cleavage tear that extends into the meniscal root, without evidence of meniscal root avulsion. Lateral meniscus demonstrates a large amount of myxoid degenerative change, with a posterior meniscal horn horizontal cleavage tear that partially extends into the meniscal body. Mild PCL sprain Mild quadriceps tendinosis. Nonspecific prepatellar edema Evidence of prominent patellar tendinosis MR/MR knee LT wo con* [id number] IMPRESSION: 1. Re-identified healing comminuted patellar fracture. Severe chondromalacia patella noted. Small joint effusion. 2. Mild quadriceps and patellar tendinosis 3. Mild PCL sprain 4. Tricompartmental DJD as described, including chondrocalcinosis, and tears of the medial and lateral menisci.
== END 2025-03-20 14:02 | disposition home or self-care (01) ==
PROVIDERS: PCP Family Medicine; Visit Provider Orthopaedic Surgery
DX: M48.02 Spinal stenosis, cervical region (principal); M43.8X2 Other specified deforming dorsopathies, cervical region; R93.7 Abnormal findings on diagnostic imaging of other parts of musculoskeletal system; M47.892 Other spondylosis, cervical region; M65.88 Other synovitis and tenosynovitis, other site; Z98.890 Other specified postprocedural states; M54.02 Panniculitis affecting regions of neck and back, cervical region; M25.78 Osteophyte, vertebrae; M53.82 Other specified dorsopathies, cervical region; S82.042D Displaced comminuted fracture of left patella, subsequent encounter for closed fracture with routine healing; X58.XXXD Exposure to other specified factors, subsequent encounter; M22.42 Chondromalacia patellae, left knee; M25.462 Effusion, left knee; M67.864 Other specified disorders of tendon, left knee; S83.522A Sprain of posterior cruciate ligament of left knee, initial encounter; R93.6 Abnormal findings on diagnostic imaging of limbs; M11.262 Other chondrocalcinosis, left knee; S83.242A Other tear of medial meniscus, current injury, left knee, initial encounter; S83.282A Other tear of lateral meniscus, current injury, left knee, initial encounter
CPT/HCPCS: 72141; 73721

== ENCOUNTER → 2025-03-27 10:00 | Outpatient (BNVA) | payer OTHER, MEDICAID, SELFPAY | PROVIDERS: PCP Family Medicine; Visit Provider Orthopaedic Surgery | DX: Z09 Encounter for follow-up examination after completed treatment for conditions other than malignant neoplasm (principal) | CPT/HCPCS: 99213 ==

== ENCOUNTER 2025-10-07 08:28 | Emergency (ER) | payer MEDICARE, SELFPAY ==
[2025-10-07 08:34] VITALS: BP 132/88; PULSE 80; RESP 16; TEMP 36.7; O2SAT 98; BMI 28.3
--- NOTE | 2025-10-07 08:37 | W.ED.GENADLT ---
HPI - General Adult General: Chief complaint: General Medical Stated complaint: needs meds refilled Time Seen by Provider: 10/07/25 08:33 Source: patient Mode of arrival: ambulatory Limitations: no limitations History of Present Illness: 65-year-old female states she moved here recently and is currently out of her pregabalin, meloxicam and fluoxetine. She states that she had ran out today and needs refills as she has not had a PCP here yet. She has no medical complaints at this time Related Data Home Medications ?Medication ?Instructions ?Recorded ?Confirmed cholecalciferol (vitamin D3) 125 125 mcg PO DAILY 04/11/23 03/27/25 mcg (5,000 unit) tablet (Vitamin D3) alendronate 70 mg tablet 70 mg PO Q7D 01/09/25 03/27/25 cyclobenzaprine 10 mg tablet 10 mg PO TID PRN muscle spasm 01/09/25 03/27/25 fluoxetine 20 mg capsule (Prozac) 20 mg PO DAILY 01/09/25 03/27/25 pantoprazole 40 mg tablet,delayed 40 mg PO DAILY 01/09/25 03/27/25 release Previous Rx's ?Medication ?Instructions ?Recorded Bone Growth Stimulator E0748 #1 ea 05/01/23 referral to aqua therapy #1 ea 05/14/24 diphenhydramine HCl 50 mg tablet 50 mg PO TID PRN allergy symptoms 08/15/24 (Benadryl Allergy) #30 tabs pregabalin 200 mg capsule 200 mg PO BID #60 caps 12/09/24 estradiol 0.01% (0.1 mg/gram) 1 g vaginal DAILY #42.5 grams 01/02/25 vaginal cream oxybutynin chloride 5 mg 5 mg PO DAILY #90 tabs 01/02/25 tablet,extended release 24 hr levothyroxine 100 mcg tablet 100 mcg PO DAILY #90 tabs 02/25/25 levetiracetam 750 mg 750 mg PO BEDTIME #30 tabs 02/27/25 tablet,extended release 24 hr Walker #1 ea 03/05/25 fluoxetine 60 mg tablet 60 mg PO DAILY #30 tabs 10/07/25 meloxicam 7.5 mg tablet 7.5 mg PO BID #60 tabs 10/07/25 pregabalin 200 mg capsule 200 mg PO BID #60 caps 10/07/25 Allergies Allergy/AdvReac Type Severity Reaction Status Date / Time Sulfa (Sulfonamide Allergy ALGY-Anaphy Verified 03/27/25 10:06 Antibiotics) laxis PFSH ED PFSH: Medical History (Updated 10/07/25 @ 08:38 by Anna Jackson MD) Psychiatric care Abnormal chest x-ray Non-healing skin lesion of nose Change in hearing COPD (chronic obstructive pulmonary disease) Former smoker, stopped smoking in distant past Quit in 2018 Anemia, chronic disease Constipation due to opioid therapy Osteoporotic compression fracture of spine Funes esophagus chronic nausea Chronic left shoulder pain History of alcoholism Sober since 2009 Depression Seizures had one seizure Oct 2021, none since Hx of hepatitis C treated at time of diagnosis [facility], Oxycodone out since ~ 12/21/2022 Osteoporosis GERD (gastroesophageal reflux disease) Hypothyroidism Chronic back pain fusion T3-10, posterior krystal and pedicle screw fixation extending from T10 through S1, L4 and L5 fusion Surgical History Status post lumbar spinal fusion 04/10/2023 and 09/2023 S/P vertebroplasty Family History Denies family history of Diabetes Anesthesia complication Hypertension Social History Smoking and tobacco/nicotine status: former use of tobacco/nicotine Quit status (tobacco/nicotine): has quit using Former quit date comment: quit in 2018 Second hand smoke exposure: No Alcohol intake: former Substance/Drug Use: never Physical Exam Const: COMMON NORMALS: no acute distress, patient oriented x3 and healthy appearing HENMT: COMMON NORMALS: normocephalic and atraumatic HEAD & SCALP: normocephalic and atraumatic Neck/C-Spine: COMMON NORMALS: full ROM and supple Chest: COMMONS NORMALS: normal inspection of the chest Resp: COMMON NORMALS: normal respiratory effort Cardio: COMMON NORMALS: regular rate RATE: regular rate Extremity: COMMON NORMALS: normal to inspection and full ROM Neuro: COMMON NORMALS: patient oriented x3, moves all extremities and no focal motor deficits Psych: COMMON NORMALS: mental status grossly normal, Normal thought process present and cooperative THOUGHT PROCESS: Normal thought process present Skin: COMMON NORMALS: no rashes or lesions noted and no wounds GENERAL SKIN EXAM: no rashes or lesions noted Course Vital Signs: Vital signs: Vital Signs Temperature 98.0 F 10/07/25 08:34 Pulse Rate 80 10/07/25 08:34 Respiratory Rate 16 10/07/25 08:34 Blood Pressure 132/88 10/07/25 08:34 Pulse Oximetry 98 10/07/25 08:34 Oxygen Delivery Me thod Room Air 10/07/25 08:34 MDM - General Adult Medical Decision Making Patient presents here needing medication refill she does not have a PCP and recently moved here she has no medical complaints will refill her pregabalin, meloxicam and fluoxetine she is stable for discharge follow-up PCP return if worsening. No radiology studies performed this visit Discharge Plan Discharge Patient Disposition: Home Clinical Impression: Medication refill Condition: Stable Prescriptions: New pregabalin 200 mg capsule 200 mg PO BID Qty: 60 0RF meloxicam 7.5 mg tablet 7.5 mg PO BID Qty: 60 0RF fluoxetine 60 mg tablet 60 mg PO DAILY Qty: 30 0RF No Action oxybutynin chloride 5 mg tablet extended release 24hr 5 mg PO DAILY Qty: 90 3RF estradiol 0.01 % (0.1 mg/gram) cream 1 g vaginal DAILY Qty: 42.5 3RF Rx Instructions: twice weekly Benadryl Allergy 50 mg tablet 50 mg PO TID PRN (Reason: allergy symptoms) Qty: 30 0RF pregabalin 200 mg capsule 200 mg PO BID Qty: 60 0RF (DME) referral to aqua therapy See Rx Instructions .Route .MEDSUPPLY Qty: 1 0RF Rx Instructions: As directed (DME) Walker See Rx Instructions .Route .MEDSUPPLY Qty: 1 0RF Rx Instructions: As directed (DME) Bone Growth Stimulator E0748 See Rx Instructions .Route .MEDSUPPLY Qty: 1 0RF Rx Instructions: As directed levothyroxine 100 mcg tablet 100 mcg PO DAILY Qty: 90 0RF levetiracetam 750 mg tablet extended release 24 hr 750 mg PO BEDTIME Qty: 30 0RF cholecalciferol (vitamin D3) [Vitamin D3] 125 mcg (5,000 unit) Tablet 125 mcg PO DAILY fluoxetine [Prozac] 20 mg Capsule 20 mg PO DAILY cyclobenzaprine 10 mg tablet 10 mg PO TID PRN (Reason: muscle spasm) alendronate 70 mg tablet 70 mg PO Q7D pantoprazole 40 mg tablet,delayed release (DR/EC) 40 mg PO DAILY Discharge Orders: Discharge ED (Routine); Ordered 10/07/25 Ordered By: Anna Jackson Discharge Diet: Advance as tolerated Discharge Activity: Resume usual activity Patient Instructions: Medicine Refill (ED) Print Language: Burkinan Coding Level of Care Code ED Lavatory Attendant for Alonzo Mendiola
--- OUTSIDE RECORDS SUMMARY | 2025-10-07 08:43 | XMS_ITS ---
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 [place] Encounters Date Name 03/07/2022 Vaginal odor Medications Date Name Route Dose Frequency Instructions Start Date End Date Status Fill Status Indication 03/07 Oxycodone Oral 12 hr Sprinkle Cap active 03/07 Oxycodone Oral orally 10.0 mg every 4 to 6 hours prn pain active 03/07 Levothyro xine Oral orally 75.0 mcg daily active 03/07 Pregabali n Oral active 03/07 Pantopraz ole (Sodium) Oral Delayed Release active 03/07 estradiol 0.1 MG/ML Vaginal Cream 2021 active Problems Diagnosis Status Date of Diagnosis Resolution Date Vaginal odor Active Vital Signs Date Type Value 03/07/2022 Heart Beat 60.00 03/07/2022 Oxygen Saturation 97.00 03/07/2022 Intravascular Systolic 104 03/07/2022 Intravascular Diastolic 70 03/07/2022 BSA 1.62 03/07/2022 Weight 132.40 03/07/2022 Height 63.00 03/07/2022 BMI 23.45 03/07/2022 Pain Scale 0.00
--- OUTSIDE RECORDS SUMMARY | 2025-10-07 08:43 | XMS_ITS | CCD ---
Author Name Interface, [id number] [address] Organization [facility] [place] [address] Care Team Providers Care Gyroscopic Engineering Technician Name Role Phone Ferny Rivera MD Unavailable Unavailable Allergies and Adverse Reactions Medication/Group Name Reaction Severity Date Sulfa (Sulfonamide Antibiotics) 03/07/2022 Reason for Visit FAX MACHINE REPAIRER COLOVAGINAL FISTULA// [place] [facility] [place] Medications Date Name Route Dose Frequency Instructions Start Date End Date Status Fill Status Indication 03/07 Levothyro xine Oral orally 75.0 mcg daily active 03/07 Pregabali n Oral active 03/07 Oxycodone Oral 12 hr Sprinkle Cap active 03/07 Pantopraz ole (Sodium) Oral Delayed Release active 03/07 Oxycodone Oral orally 10.0 mg every 4 to 6 hours prn pain active Problems Diagnosis Status Date of Diagnosis Resolution Date Vaginal odor Active Social History Date Name Value 03/07/2022 Sex Female
== END 2025-10-07 09:00 | disposition home or self-care (01) ==
PROVIDERS: Emergency Provider Emergency Medicine
DX: Z76.0 Encounter for issue of repeat prescription (principal); Z87.891 Personal history of nicotine dependence; J44.9 Chronic obstructive pulmonary disease, unspecified
CPT/HCPCS: 99281

== ENCOUNTER 2025-10-22 09:15 | Emergency (ER) | payer MEDICARE, SELFPAY ==
[2025-10-22 09:19] VITALS: BP 115/81; PULSE 90; RESP 26; TEMP 36.8; O2SAT 96; BMI 25.9
--- NOTE | 2025-10-22 09:21 | XR_ITS ---
WS: [id number] Portable AP upright chest, 10/22/2025 Clinical Data: sob Comparison: Two-view chest, 07/15/2024 Findings: No nodules, masses or effusions are seen. The heart is normal. The pulmonary vascularity is not increased. No pneumonia or pneumothorax is seen. The aortic arch and descending thoracic aorta show mild calcification and tortuosity. The extensive posterior thoracolumbar fusions remain the same. There are orthopedic anchors in the right humeral head. Monitor leads are on the chest wall. Vertebroplasty cement is in the T5 and T6 vertebral bodies. XR/XR chest 1V portable [id number] Impression: Atherosclerosis.
--- OUTSIDE RECORDS SUMMARY | 2025-10-22 09:30 | XMS_ITS ---
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
--- OUTSIDE RECORDS SUMMARY | 2025-10-22 09:30 | XMS_ITS | CCD ---
Author Name Interface, [id number] [address] Organization [facility] [place] [address] Care Team Providers Care Master Cook Name Role Phone Miguel DUFFY, Ferny Unavailable Unavailable Allergies and Adverse Reactions Medication/Group Name Reaction Severity Date Sulfa (Sulfonamide Antibiotics) 03/07/2022 Reason for Visit VOLUNTEER COORDINATOR COLOVAGINAL FISTULA// [place] [facility] [place] Medications [...]
--- NOTE | 2025-10-22 09:40 | ED_ITS ---
HPI - SOB/Dyspnea 2 General: Chief Complaint: Shortness of Breath/Dyspnea Stated Complaint: trouble breathing coughing up green stuff Time Seen by Provider: 10/22/25 09:27 Source: patient Mode of arrival: ambulatory Limitations: no limitations History of Present Illness: HPI Narrative: 65-year-old female has a history of COPD is chronic smoker states over the last 3 to 4 days has been having cough congestion. She states she has had multiple sick contacts at home with the same. States she has had coughing up green sputum along with wheezing. She denies any chest pain she denies any fevers. Related Data Home Medications ?Medication ?Instructions ?Recorded ?Confirmed cholecalciferol (vitamin D3) 125 125 mcg PO DAILY 03/2403/27/25 mcg (5,000 unit) tablet (Vitamin D3) alendronate 70 mg tablet 70 mg PO Q7D 01/09/25 cyclobenzaprine 10 mg tablet 10 mg PO TID PRN muscle s pasm 01/09/25 03/27/25 fluoxetine 20 mg capsule (Prozac) 20 mg PO DAILY 01/0903/27/25 pantoprazole 40 mg tablet,delayed 40 mg PO DAILY 01/0903/27/25 release Previous Rx's ?Medication ?Instructions ?Recorded Bone Growth Stimulator E0748 #1 ea 05/01/23 referral to aqua therapy #1 ea 05/14/24 diphenhydramine HCl 50 mg tablet 50 mg PO TID PRN jarad rgy symptoms 08/15/24 (Benadryl Allergy) #30 tabs pregabalin 200 mg capsule 200 mg PO BID #60 caps 12/09 estradiol 0.01% (0.1 mg/gram) 1 g vaginal DAILY #42.5 grams 01/02/25 vaginal cream oxybutynin chloride 5 mg 5 mg PO DAILY #90 tabs 01/02 tablet,extended release 24 hr levothyroxine 100 mcg tablet 100 mcg PO DAILY #90 tabs 02/25/25 levetiracetam 750 mg 750 mg PO BEDTIME #30 tabs 0 02/27/25 tablet,extended release 24 hr Walker #1 ea 03/05/25 fluoxetine 60 mg tablet 60 mg PO DAILY #30 tabs 09/22 04/16 meloxicam 7.5 mg tablet 7.5 mg PO BID #60 tabs 10/07 pregabalin 200 mg capsule 200 mg PO BID #60 caps 10/07 albuterol sulfate 90 mcg/actuation 2 inh inhalation Q6 H PRN shortness 10/22/25 aerosol inhaler of breath or wheezing #8 gra ms cephalexin 500 mg capsule 500 mg PO TID 7 days #21 cap s 10/22/25 prednisone 50 mg tablet 50 mg PO DAILY #5 tabs 10/22 Allergies Allergy/AdvReac Type Severity Reaction Status Date / Time Sulfa (Sulfonamide Allergy ALGY-Anaphy Verified 10/22/25 09:28 Antibiotics) laxis Review of Systems 2 Resp: Reports: wheezing PFSH ED 2 PFSH: Medical History (Updated 10/22/25 @ 10:44 by Anna Jackson MD) Psychiatric care Abnormal chest x-ray Non-healing skin lesion of nose Change in hearing COPD (chronic obstructive pulmonary disease) Former smoker, stopped smoking in distant past Quit in 2018 Anemia, chronic disease Constipation due to opioid therapy Osteoporotic compression fracture of spine Funes esophagus chronic nausea Chronic left shoulder pain History of alcoholism Sober since 2009 Depression Seizures had one seizure Oct 2021, none since Hx of hepatitis C treated at time of diagnosis [facility] dependence [facility], Oxycodone out since ~ 12/21/2022 Osteoporosis GERD (gastroesophageal reflux disease) Hypothyroidism Chronic back pain fusion T3-10, posterior krystal and pedicle screw fixation extending from T10 through S1, L4 and L5 fusion Surgical History Status post lumbar spinal fusion 04/10/2023 and 09/2023 S/P vertebroplasty Family History Denies family history of Diabetes Anesthesia complication Hypertension Social History Smoking and tobacco/nicotine status: former use of tobacco/nicotine Quit status (tobacco/nicotine): has quit using Former quit date comment: quit in 2018 Second hand smoke exposure: No Alcohol intake: former Substance/Drug Use: never Physical Exam 2 Const: COMMON NORMALS: patient oriented x3 HENMT: COMMON NORMALS: normocephalic and atraumatic HEAD & SCALP: n ormocephalic and atraumatic Neck/C-Spine: COMMON NORMALS: full ROM and supple Chest: COMMONS NORMALS: normal inspection of the chest Resp: COMMON NORMALS: normal respiratory effort, No retractions and No use of accessory muscles AUSCULTATION: wheezes Cardio: COMMON NORMALS: regular rate, regular rhythm and No murmurs present (Cardio) RATE: regular rate RHYTHM: regular rhythm GI: COMMON NORMALS: Normal to inspection, nondistended, normoactive bowel sounds present, Soft to palpation, non-tender and no masses PALPATION: Yes Soft to palpation Extremity: COMMON NORMALS: normal to inspection and full ROM Neuro: COMMON NORMALS: patient oriented x3, moves all extremities and no focal motor deficits Psych: COMMON NORMALS: mental status grossly normal, Normal thought process present and cooperative THOUGHT PROCESS: Normal thought process present Skin: COMMON NORMALS: no rashes or lesions noted and no wounds GENERAL SKIN EXAM: no rashes or lesions noted Course 2 Vital Signs: Vital signs: Vital Signs Temperature 98.3 F 10/22/25 09:19 Pulse Rate 90 10/22/25 11:07 Respiratory Rate 18 10/22/25 09:47 Blood Pressure 103/77 10/22/25 11:07 Pulse Oximetry 97 10/22/25 11:07 Oxygen Delivery Me thod Room Air 10/22/25 09:47 MDM - SOB/Dyspnea Medical Decision Making Patient presents with cough congestion wheezing is been going on for 3 days. Differential includes pneumonia, COPD exacerbation, viral URI. Patient has had multiple sick contacts with the same she did have wheezing here she does feel improved after breathing treatment IV steroids she has had no hypoxia here x-ray shows no signs of pneumonia. Likely a bronchitis will place her on 5 days of steroids will refill her albuterol inhaler and placed her on Keflex I feel she is stable for discharge at this time she is return if worsening she understands agrees to plan. She has no signs of pulmonary emboli here. Medical Records I reviewed the patient's medical records. Lab Data I reviewed the patient's lab results. 10/22/25 09:44 10/22/25 09:44 Labs/Radiology: Radiology Impressions Chest X-Ray 10/22/25 09:21 Impression: Atherosclerosis. Laboratory Results WBC 12.95 10^3/uL (3.29-11.43) H 10/22/25 09:44 RBC 4.04 10^6/uL (3.85-5.65) 10/22/25 09:44 Hgb 12.30 g/dL (11.27-16.99) 10/22/25 09:44 Hct 37.6 % (36-47) 10/22/25 09:44 MCV 93.1 fl (85-98) 10/22/25 09:44 MCH 30.4 pg (27-33) 10/22/25 09:44 MCHC 32.7 g/dL (30-55) 10/22/25 09:44 RDW 14.6 % (12.1-15.1) 10/22/25 09:44 Plt Count 351 10^3/cmm (157-399) 10/22/25 09:44 MPV 8.3 fL (7.4-10.4) 10/22/25 09:44 Neut % (Auto) 75.0 % 10/22/25 09:44 Lymph % (Auto) 14.7 % 10/22/25 09:44 [place] % (Auto) 7.8 % 10/22/25 09:44 Eos % (Auto) 1.7 % 10/22/25 09:44 Baso % (Auto) 0.5 % 10/22/25 09:44 Neut # (Auto) 9.72 10^3/uL (1.8-7.7) H 10/22/25 09:44 Lymph # (Auto) 1.9 10^3/uL (0.8-4.8) 10/22/25 09:44 [place] # (Auto) 1.0 10^3/uL (0.2-0.9) H 10/22/25 09:44 Eos # (Auto) 0.2 10^3/uL (0.0-0.8) 10/22/25 09:44 Baso # (Auto) 0.1 10^3/uL (0.0-0.1) 10/22/25 09:44 Nucleated RBC % (auto) 0 % 10/22/25 09:44 Nucleated RBCs # 0.0 /100WBC 10/22/25 09:44 Sodium 137 mmol/L (136-145) 10/22/25 09:44 Potassium 4.4 mmol/L (3.5-5.1) 10/22/25 09:44 Chloride 101 mmol/L (98-107) 10/22/25 09:44 Carbon Dioxide 22 mmol/L (22-29) 10/22/25 09:44 Anion Gap 18.4 (5-19) 10/22/25 09:44 BUN 13 mg/dL (8-23) 10/22/25 09:44 Creatinine 0.6 mg/dL (0.5-0.9) 10/22/25 09:44 GFR Calculation 100.6 mL/min (90-130) 10/22/25 09:44 Glucose 94 mg/dL (65-115) 10/22/25 09:44 Calculated Osmolality 284 mOsm/kg (285-295) L 10/22/25 09:44 Calcium 9.3 mg/dL (8.5-10.5) 10/22/25 09:44 Total Bilirubin 0.4 mg/dL (0.15-1.2) 10/22/25 09:44 AST 15 U/L (0-32) 10/22/25 09:44 ALT 6 U/L (0-33) 10/22/25 09:44 Alkaline Phosphatase 94 U/L (35-105) 10/22/25 09:44 Total Protein 7.2 g/dL (6.6-8.7) 10/22/25 09:44 Albumin 4.0 g/dL (3.5-5.2) 10/22/25 09:44 Globulin 3.2 g/dL (1.3-4.6) 10/22/25 09:44 Influenza A (PCR) Negative (Negative) 10/22/25 09:30 Influenza Type B (PCR) Negative (Negative) 10/22/25 09:30 RSV (PCR) Negative (Negative) 10/22/25 09:30 SARS-CoV-2 (PCR) Negative (Negative) 10/22/25 09:30 All radiology interpretation(s) finalized by discharge Discharge Plan Discharge Patient Disposition: Home Clinical Impression: Acute bronchitis Qualifiers: Bronchitis organism: unspecified organism Qualified Code(s): J20.9 - Acute bronchitis, unspecified Condition: Stable Prescriptions: New cephalexin 500 mg capsule 500 mg PO TID 7 Days Qty: 21 0RF prednisone 50 mg tablet 50 mg PO DAILY Qty: 5 0RF albuterol sulfate 90 mcg/actuation HFA aerosol inhaler 2 inh INHALATION Q6H PRN (Reason: shortness of breath or wheezing) Qty: 8 0RF No Action oxybutynin chloride 5 mg tablet extended release 24hr 5 mg PO DAILY Qty: 90 3RF estradiol 0.01 % (0.1 mg/gram) cream 1 g vaginal DAILY Qty: 42.5 3RF Rx Instructions: twice weekly Benadryl Allergy 50 mg tablet 50 mg PO TID PRN (Reason: allergy symptoms) Qty: 30 0RF pregabalin 200 mg capsule 200 mg PO BID Qty: 60 0RF (DME) referral to aqua therapy See Rx Instructions .Route .MEDSUPPLY Qty: 1 0RF Rx Instructions: As directed (DME) Walker See Rx Instructions .Route .MEDSUPPLY Qty: 1 0RF Rx Instructions: As directed (DME) Bone Growth Stimulator E0748 See Rx Instructions .Route .MEDSUPPLY Qty: 1 0RF Rx Instructions: As directed levothyroxine 100 mcg tablet 100 mcg PO DAILY Qty: 90 0RF levetiracetam 750 mg tablet extended release 24 hr 750 mg PO BEDTIME Qty: 30 0RF cholecalciferol (vitamin D3) [Vitamin D3] 125 mcg (5,000 unit) Tablet 125 mcg PO DAILY fluoxetine [Prozac] 20 mg Capsule 20 mg PO DAILY cyclobenzaprine 10 mg tablet 10 mg PO TID PRN (Reason: muscle spasm) alendronate 70 mg tablet 70 mg PO Q7D pantoprazole 40 mg tablet,delayed release (DR/EC) 40 mg PO DAILY pregabalin 200 mg capsule 200 mg PO BID Qty: 60 0RF meloxicam 7.5 mg tablet 7.5 mg PO BID Qty: 60 0RF fluoxetine 60 mg tablet 60 mg PO DAILY Qty: 30 0RF Discharge Orders: Discharge ED (Routine); Ordered 10/22/25 Ordered By: Anna Jackson Discharge Diet: Advance as tolerated Discharge Activity: Resume usual activity Patient Instructions: Acute Bronchitis (ED) Print Language: Bulgarian Coding Level of Care Code ED Substation Operator Automatic for Alonzo Mendiola
[2025-10-22 09:47] VITALS: PULSE 90; RESP 18; O2SAT 98
[2025-10-22 09:52] LABS: Hematocrit 37.6 % (36-47); Hemoglobin 12.30 g/dL (11.27-16.99); Mean Corpuscular HGB Conc 32.7 g/dL (30-55); Mean Corpuscular Hemoglobin 30.4 pg (27-33); Mean Corpuscular Volume 93.1 fl (85-98); Nucleated Red Blood Cells % 0 %; Platelet Count 351 10^3/cmm (157-399); Red Blood Count 4.04 10^6/uL (3.85-5.65); White Blood Count 12.95 10^3/uL (3.29-11.43)
[2025-10-22 10:02] LABS: Chloride 101 mmol/L (98-107); Potassium 4.4 mmol/L (3.5-5.1); Sodium 137 mmol/L (136-145)
[2025-10-22 10:13] LABS: Alanine Aminotransferase 6 U/L (0-33); Albumin Level 4.0 g/dL (3.5-5.2); Alkaline Phosphatase 94 U/L (35-105); Anion Gap 18.4 (5-19); Aspartate Amino Transferase 15 U/L (0-32); Blood Urea Nitrogen 13 mg/dL (8-23); Calcium 9.3 mg/dL (8.5-10.5); Carbon Dioxide 22 mmol/L (22-29); Globulin 3.2 g/dL (1.3-4.6); Glucose 94 mg/dL (65-115); Osmolality Calculated 284 mOsm/kg (285-295); Total Protein 7.2 g/dL (6.6-8.7)
[2025-10-22] MEDS: methylPREDNISolone sod succ 125 mg/2 mL INJ IVP (10:16)
[2025-10-22 10:20] LABS: Respiratory Syncytial Virus Ce NEGATIVE (Negative); SARS-CoV-2 PCR NEGATIVE (Negative)
[2025-10-22 11:07] VITALS: BP 103/77; PULSE 90; O2SAT 97
== END 2025-10-22 11:09 | disposition home or self-care (01) ==
PROVIDERS: Emergency Provider Emergency Medicine
DX: J20.9 Acute bronchitis, unspecified (principal); Z11.52 Encounter for screening for COVID-19; Z87.891 Personal history of nicotine dependence; J44.9 Chronic obstructive pulmonary disease, unspecified
CPT/HCPCS: 36415; 71045; 80053; 85025; 87637; 94640; 96374; 99284; J2919; J7613; J9999